=== PATIENT | female | born 1955 | race Caucasian/White ===

== ENCOUNTER 2019-01-05 08:30 | Emergency (ER) | payer MEDICARE ==
[~2019-01-05] VITALS: Ht 167.6 cm; Wt 65.8 kg
== END 2019-01-05 09:16 | disposition home or self-care (01) ==
LOC: ED 08:30
DX: S81.801A Unspecified open wound, right lower leg, initial encounter (principal); Z88.2 Allergy status to sulfonamides; Z79.899 Other long term (current) drug therapy; W22.8XXA Striking against or struck by other objects, initial encounter; Y93.89 Activity, other specified; Y92.89 Other specified places as the place of occurrence of the external cause; Y99.8 Other external cause status

== ENCOUNTER → 2019-01-05 | Outpatient (CLI) | payer MEDICARE ==
[~2019-01-05] MED LIST: JANUMET 500 MG-1 TA1 PO; NORCO 325 MG-101 TAB PO; ZOFRAN ODT4 MG SL
== END | disposition home or self-care (01) ==
LOC: WOUNDCARE 09:00
DX: E11.622 Type 2 diabetes mellitus with other skin ulcer (principal); L97.812 Non-pressure chronic ulcer of other part of right lower leg with fat layer exposed; I10 Essential (primary) hypertension

== ENCOUNTER → 2019-01-11 | Outpatient (CLI) | payer MEDICARE | END | disposition home or self-care (01) | LOC: WOUNDCARE 08:33 | DX: E11.622 Type 2 diabetes mellitus with other skin ulcer (principal); L97.812 Non-pressure chronic ulcer of other part of right lower leg with fat layer exposed; I10 Essential (primary) hypertension ==

== ENCOUNTER → 2019-01-18 | Outpatient (CLI) | payer MEDICARE | END | disposition home or self-care (01) | LOC: WOUNDCARE 01:15 | DX: E11.622 Type 2 diabetes mellitus with other skin ulcer (principal); L97.812 Non-pressure chronic ulcer of other part of right lower leg with fat layer exposed; L03.115 Cellulitis of right lower limb; I10 Essential (primary) hypertension ==

== ENCOUNTER → 2019-02-01 | Outpatient (CLI) | payer MEDICARE | END | disposition home or self-care (01) | LOC: WOUNDCARE 02:57 | DX: E11.622 Type 2 diabetes mellitus with other skin ulcer (principal); L97.812 Non-pressure chronic ulcer of other part of right lower leg with fat layer exposed; I10 Essential (primary) hypertension ==

== ENCOUNTER → 2019-02-14 | Outpatient (CLI) | payer MEDICARE | END | disposition home or self-care (01) | LOC: WOUNDCARE 08:30 | DX: E11.622 Type 2 diabetes mellitus with other skin ulcer (principal); L97.812 Non-pressure chronic ulcer of other part of right lower leg with fat layer exposed; I10 Essential (primary) hypertension ==

== ENCOUNTER → 2019-03-16 | Outpatient (CLI) | payer MEDICARE | END | disposition home or self-care (01) | LOC: WOUNDCARE 14:20 | DX: E11.622 Type 2 diabetes mellitus with other skin ulcer (principal); L97.811 Non-pressure chronic ulcer of other part of right lower leg limited to breakdown of skin; I87.311 Chronic venous hypertension (idiopathic) with ulcer of right lower extremity; I87.302 Chronic venous hypertension (idiopathic) without complications of left lower extremity ==

== ENCOUNTER → 2019-04-06 | Outpatient (CLI) | payer MEDICARE | END | disposition home or self-care (01) | LOC: WOUNDCARE 02:12 | DX: E11.622 Type 2 diabetes mellitus with other skin ulcer (principal); L97.811 Non-pressure chronic ulcer of other part of right lower leg limited to breakdown of skin; I87.311 Chronic venous hypertension (idiopathic) with ulcer of right lower extremity ==

== ENCOUNTER → 2019-04-20 | Outpatient (CLI) | payer MEDICARE | END | disposition home or self-care (01) | LOC: WOUNDCARE 01:11 | DX: E11.622 Type 2 diabetes mellitus with other skin ulcer (principal); L97.811 Non-pressure chronic ulcer of other part of right lower leg limited to breakdown of skin; I87.311 Chronic venous hypertension (idiopathic) with ulcer of right lower extremity; L92.9 Granulomatous disorder of the skin and subcutaneous tissue, unspecified ==

== ENCOUNTER → 2019-04-27 | Outpatient (CLI) | payer MEDICARE | END | disposition home or self-care (01) | LOC: WOUNDCARE 00:43 | DX: E11.622 Type 2 diabetes mellitus with other skin ulcer (principal); L97.811 Non-pressure chronic ulcer of other part of right lower leg limited to breakdown of skin; I87.311 Chronic venous hypertension (idiopathic) with ulcer of right lower extremity; L92.9 Granulomatous disorder of the skin and subcutaneous tissue, unspecified ==

== ENCOUNTER → 2019-05-04 | Outpatient (CLI) | payer MEDICARE | END | disposition home or self-care (01) | LOC: WOUNDCARE 01:03 | DX: E11.622 Type 2 diabetes mellitus with other skin ulcer (principal); L97.811 Non-pressure chronic ulcer of other part of right lower leg limited to breakdown of skin; I87.311 Chronic venous hypertension (idiopathic) with ulcer of right lower extremity; L92.9 Granulomatous disorder of the skin and subcutaneous tissue, unspecified; I87.302 Chronic venous hypertension (idiopathic) without complications of left lower extremity ==

== ENCOUNTER → 2019-05-11 | Outpatient (CLI) | payer MEDICARE | END | disposition home or self-care (01) | LOC: WOUNDCARE 00:45 | DX: E11.622 Type 2 diabetes mellitus with other skin ulcer (principal); L97.811 Non-pressure chronic ulcer of other part of right lower leg limited to breakdown of skin; I87.311 Chronic venous hypertension (idiopathic) with ulcer of right lower extremity; L92.9 Granulomatous disorder of the skin and subcutaneous tissue, unspecified ==

== ENCOUNTER → 2019-05-18 | Outpatient (CLI) | payer MEDICARE | END | disposition home or self-care (01) | LOC: WOUNDCARE 01:26 | DX: E11.622 Type 2 diabetes mellitus with other skin ulcer (principal); L97.811 Non-pressure chronic ulcer of other part of right lower leg limited to breakdown of skin; I87.311 Chronic venous hypertension (idiopathic) with ulcer of right lower extremity; L92.9 Granulomatous disorder of the skin and subcutaneous tissue, unspecified ==

== ENCOUNTER 2019-09-14 12:03 | Inpatient (IN) | payer MEDICARE ==
[~2019-09-14] VITALS: Ht 167.6 cm; Wt 68.7 kg
--- NOTE | ~2019-09-14 | PR ---
[place], [place] PROGRESS NOTE [facility]: [id number] UNIT #: [id number] ROOM: 520 DOCTOR: ISAI SANCHES,FEBRUARY BIRTHDATE: [birth year] DOS: 09/16/2019 SUBJECTIVE: The patient is a pleasant 64-year-old female who is being followed for bacteremia. Her blood cultures have come back with a fairly sensitive E. coli. She does admit to some mild dysuria. Her admitting UA had bilirubin and only 2-4 wbc's, negative for nitrites. Her antibiotics have been appropriately narrowed to Levaquin, which is currently IV. She states she only has nausea when she attempts to eat the hospital food. No diarrhea. Admits to some chronic pain. She still has lower extremity edema. No rash or itch. She has been afebrile for the last 24 hours. LABORATORY DATA: WBC 6.8, platelets 57. BUN 17, creatinine 0.88. CURRENT MEDICATIONS: Include Levaquin, folic acid, vitamin D, Lovenox, Restoril, Zofran. Reviewing an old CT of the abdomen and pelvis from 2013, she had changes of the liver that were consistent with cirrhosis. PHYSICAL EXAMINATION: VITAL SIGNS: Temperature 97.8, pulse 82, respirations 18, BP 138/57. GENERAL: A 64-year-old female, in no acute distress. HEAD, EYES, EARS, NOSE AND THROAT: Normocephalic, no thrush. LUNGS: Clear to auscultation bilaterally. Respirations even and unlabored. HEART: Regular rhythm. No murmur appreciated. ABDOMEN: Nontender, some distention as well as flank edema. EXTREMITIES: +4 edema bilateral lower extremities. Right leg is wrapped. No erythema above or below the dressing. SKIN: Warm, pale, dry, free of rashes. ASSESSMENT AND PLAN: Right leg cellulitis, Escherichia coli bacteremia. I doubt the Escherichia coli bacteremia is due to her leg. I would strongly suspect that it would be more involved from either her gastrointestinal tract given the old CAT scan, her thrombocytopenia, her low albumin and edema. She appears to have cirrhosis. She may have had a spontaneous bacterial peritonitis or may also have had a urinary tract infection. I do not think further workup of her heart valves is indicated. At this point, we will continue the Levaquin. It can be changed over to p.o. in preparation for discharge. I had a long discussion with her regarding need for high protein diet as well as a very low sodium intake to help with her edema. Any further workup or addressing of her cirrhosis as per her attending. FEBRUARY MYRON ALEX [place], [place] PROGRESS NOTE NAME: ANKUSH LEES UNIT #: [id number] ROOM: 520 DOCTOR: ISAI SANCHES,FEBRUARY BIRTHDATE: [birth year] Kristy Hurst MD CM:PNTRANS [id number] FEBRUARY ISAI SANCHES 09/16/19 1731 interface
--- NOTE | ~2019-09-14 | PR ---
[place], [place] PROGRESS NOTE NAME: ANKUSH LEES UNIT #: [id number] ROOM: 520 DOCTOR: VISHNU MARIE,KRISTY BIRTHDATE: [birth year] DOS: 09/17/2019 ADDENDUM This is an addendum to the progress note from 09/17/2019. I agree with the assessment and plan, reviewed the labs and imaging, made the necessary changes in the note. Kristy Mares MD CM:PNTRANS 1621 KRISTY MARES MD 09/21/19 0422 interface
--- NOTE | ~2019-09-14 | EKG ---
[place], [place] ELECTROCARDIOGRAM REPORT NAME: ANKUSH LEES UNIT #: [id number] ROOM: DOCTOR: AMY DRAFT REPORT BIRTHDATE: [birth year] [facility] Test Date: 2019-09-14 Test Time: 13:51:42 Pat Name: ANKUSH LEES Department: Room: Gender: F Field Laborer: : 1955 Requested By: LALITHA LEONARD DNP Order Number: [id number] Reading MD: Measurements Intervals [place] Rate: 113 P: 0 AL: QRS: 0 QRSD: 88 T: QT: 281 QTc: 386 Interpretive Statements No further analysis attempted - not enough leads could be measured Missing lead(s): II,III,aVR,aVL,aVF,V1,V2,V3,V4,V5,V6 No previous ECG available for comparison CM:EKGRPT:ELECTROCARDIOGRAM REPORT [id number] 1100 LALITHA REYES DRAFT REPORT LALITHA LEONARD DNP
--- NOTE | ~2019-09-14 | EKG ---
[place], [place] ELECTROCARDIOGRAM REPORT NAME: ANKUSH LEES UNIT #: [id number] ROOM: 520 DOCTOR: AMY DRAFT REPORT BIRTHDATE: [birth year] [facility] Test Date: 2019-09-14 Test Time: 14:59:56 Pat Name: ANKUSH LEES Department: Room: 520 Gender: F Keypunch Operator: Maria Eugenia Mckeon : 1955 Requested By: LALITHA LEONARD DNP Order Number: [id number] Reading MD: Alissa Carson Measurements Intervals [place] Rate: 109 P: 41 WV: 161 QRS: -4 QRSD: 86 T: 141 QT: 314 QTc: 423 Interpretive Statements Sinus tachycardia Consider anterior infarct Repol abnrm suggests ischemia, anterolateral Baseline wander in lead(s) V5 No previous ECG available for comparison Electronically Signed On 09-15-2019 7:55:27 PDT by Alissa Carson CM:EKGRPT:ELECTROCARDIOGRAM REPORT [id number] LALITHA LEONARD DNP EPIPHANY DRAFT REPORT
--- NOTE | ~2019-09-14 | PR ---
[place], [place] PROGRESS NOTE NAME: ANKUSH LEES UNIT #: [id number] ROOM: 520 DOCTOR: VISHNU MARIE,KRISTY BIRTHDATE: [birth year] DOS: 09/16/2019 I agree that the E. coli bacteremia is not from the right leg cellulitis, rule out UTI. I agree with the assessment and plan, made the necessary changes in the note, reviewed the labs and imaging. Kristy Mares MD CM:PNTRANS 1620 KRISTY MARES MD 09/21/19 0421 interface
--- NOTE | ~2019-09-14 | CON ---
[place], [place] REPORT OF CONSULTATION NAME: ANKUSH LEES [facility] #: [id number] UNIT #: [id number] ROOM: 520 DOCTOR: HALI GANDHI MD BIRTHDATE: [birth year] DOS: 09/21/2019 PULMONARY CONSULTATION, EVALUATION AND MANAGEMENT CONSULTATION REQUESTED BY: Hospitalist service. REASON FOR CONSULTATION: For assessment of pleural effusions. HISTORY OF PRESENT ILLNESS: A 64-year-old white female who has been admitted to the hospital for the medical management of the wound noted on the right lower extremity, which has been reported intermittently by the patient. She has been treated in the hospital for that. She was planned for discharge yesterday and was noted with symptoms of shortness of breath. She has been noted with significant shortness of breath and hypoxia with exertion. She has a chest x-ray done initially, later on CT scan of the chest obtained for further assessment. CT scan of the chest was noted with moderate to large bilateral pleural effusions. The patient stating she does not have any symptoms of shortness of breath at rest. She had not been ambulating significantly except in her room. Denies symptoms of chest pain. The patient denies symptoms of coughing, wheezing or any hemoptysis. REVIEW OF SYSTEMS: CONSTITUTIONAL: Fatigue and tiredness noted without any symptoms of fever or chills. EYES: Denies any burning, redness, or tenderness. EARS, NOSE, THROAT SYMPTOMS: No sore throat, hoarseness, otalgia, postnasal drainage or epistaxis. CARDIOVASCULAR: Edema of the lower extremity with cellulitis. Denies symptoms of anginal pain or palpitations. GASTROINTESTINAL SYMPTOMS: Denies dysphagia, nausea, vomiting, diarrhea, abdominal pain, hematemesis, melena, or hematochezia. GENITOURINARY SYMPTOMS: No dysuria, suprapubic pain, or hematuria. MUSCULOSKELETAL: No acute joint pain, redness, or tenderness. SKIN: Wound infection, which is noted in the right lower extremity. CENTRAL NERVOUS SYSTEM: No dizziness, headache, diplopia, or syncopal episodes. Remaining systems were reviewed, they were noted all negative. PAST MEDICAL HISTORY: Noted as: 1. Hypertension. 2. Type 2 diabetes mellitus. 3. Wound infection of the right lower extremity and cellulitis. SOCIAL HISTORY: The patient stated she is single. Lives at home, does not have any children. No history of alcohol use or any illicit drug use. She was noted nonsmoker. PAST SURGICAL HISTORY: No major surgery reported. FAMILY HISTORY: The patient's father at the age of 80 with complication of [place], [place] REPORT OF CONSULTATION NAME: ANKUSH LEES UNIT #: [id number] ROOM: [facility] DOCTOR: HALI GANDHI MD BIRTHDATE: [birth year] coronary artery disease. Mother at 59 years with complication of coronary artery disease. HOME MEDICATIONS: Listed as Zofran as well as the Janumet. CURRENT MEDICATIONS: Current medications, which were administered actively on this hospitalization were noted as lisinopril, folic acid, Lovenox for DVT prophylaxis, Levaquin, doxycycline and some other meds. The patient was given 40 mg of Lasix yesterday as well and 40 mg daily was ordered for today as well. DRUG ALLERGIES: Noted as: 1. SULFA DRUG. 2. AUGMENTIN. PHYSICAL EXAMINATION: GENERAL: A 64-year-old female patient who has been currently noted sitting on the side of bed without any distress, appeared to be very scared and nervous. Height was noted 5 feet 6 inches, weight 151 pounds, BMI 24. VITAL SIGNS: Vital signs, which were recorded shows normal temperature 99.7 degree Fahrenheit noted in the last 24 hours, respiratory rate 18-16, heart rate 72-103, blood pressure 140/58-152/81. Pulse ox saturation at rest on room air 95% saturation. HEENT: Head was atraumatic. Eyes nonicterus. NECK: Supple. CARDIOVASCULAR: S1, S2 audible. LUNGS: Noted with decreased breath sounds in lower portion of the lung. There were no wheeze or crackles. ABDOMEN: Soft, nontender. EXTREMITIES: Currently, right lower extremity is wrapped. MUSCULOSKELETAL: Without any deformity. SKIN: Limited skin examination noted without any lesions or rashes. CENTRAL NERVOUS SYSTEM: Noted intact. LABORATORY DATA: Assessed. CBC that was done on 09/18/2019 WBC count 4.7, hemoglobin 10.7, platelet count was 65,000. CMP that was done on 09/18/2019, normal BUN and creatinine, glucose 175. Sodium 146. Albumin 2.1. Urine culture on 09/15/2019, noted moderate growth of yeast. CBC from 09/14/2019, WBC count was normal, hemoglobin 11.5, platelet count was still noted low at 69,000. The admission platelet count noted 65,000. Blood culture from 09/14/2019 noted with E. coli bacteremia and culture from 09/15/2019 does not show any abnormal bacteria isolation. IMAGING STUDIES: Chest x-ray that was done on 09/14/2019 noted with pleural effusion, area of compression atelectasis in lower lungs, greater on the left than the right side. Another chest x-ray that was done, 2 views, which was reviewed on 09/20/2019, increased pleural fluid noted on the left side with a small right pleural fluid was also noted. Lateral view shows actually large pleural effusions bilaterally. CT scan of the chest that was completed yesterday without contrast was personally reviewed from the PACS images shows moderate to large bilateral pleural fluid noted with compression atelectasis. [place], [place] REPORT OF CONSULTATION NAME: ANKUSH LEES UNIT #: [id number] ROOM: [facility] DOCTOR: YECENIA POST MD,[facility] BIRTHDATE: [birth year] There were no discrete lung masses or other abnormalities seen. Ultrasound of the left upper extremity was also done, which was noted as negative for any deep venous thrombosis. IMPRESSION: 1. The patient will be currently admitted to the hospital noted with bilateral pleural fluid related to most likely congestive heart failure, whether systolic or diastolic dysfunction was unknown. 2. Cellulitis of right lower extremity, which has been managed under the care of the Infectious Disease Service as well with antibiotics to be continued for 3 weeks of doxycycline. There was no past history of tobacco use reported by the patient. 3. History of type 2 diabetes mellitus as well. 4. Bacteremia with Escherichia coli, noted pansensitive organism from admission, source unknown. GI or genitourinary tract would be considered, but so far the investigation performed were noted nonrevealing. PLAN OF MANAGEMENT: The patient has been recommended about thoracentesis bilaterally stating she is extremely frightened about any procedures. She has been explained to the best possible about the thoracentesis that will be beneficial for further diagnostic workup and management of current problem. She already has been ordered for echocardiogram. Probably she will require Cardiology consultation as well for assessment of current bilateral pleural fluid as the congestive heart failure is most likely reason for bilateral pleural fluid or other atypical etiology such as infection, malignant process and other remains in consideration, but considered lower in the list. In the meantime, other therapy, plan of management, care to be continued as in progress. Usual care, other supportive plan of management, care plan for treatment and other therapies. Supportive care, other usual medical management, plan of care. HALI KEENE MD CM:CONSTR:REPORT OF CONSULTATION 1312 09/22/19 0213 interface
--- NOTE | ~2019-09-14 | PR ---
[place], [place] [facility]GR[id number] #: [id number] ROOM: 520 DOCTOR: YECENIA POST MD,HALI BIRTHDATE: [birth year] DOS: 09/22/2019 PULMONARY PROGRESS NOTE SUBJECTIVE: She remains the same yesterday. Denies symptoms of coughing, chest pain, sputum expectoration, fever or chills. OBJECTIVE: VITAL SIGNS: Normal temperature, respiratory rate 16, heart rate 78, blood pressure 150/67. Pulse ox saturation recorded at rest on room air is 94% saturation. HEENT: Examination shows head was atraumatic. Eyes nonicterus. NECK: Supple. CARDIOVASCULAR SYSTEM: S1, S2 audible. LUNGS: Noted without any wheezing or crackles. Decreased breath sounds in the right lower lung as previously noted unchanged. ABDOMEN: Soft, nontender. Bowel sounds present. EXTREMITIES: No new changes. IMPRESSION: Bilateral moderate to large pleural fluid, refused to do thoracentesis. Possible consideration of congestive heart failure, workup is in progress. PLAN OF TREATMENT: Continue conservative management based on the patient's refusal of further assessment and intervention of the pleural fluid with conservative therapy. Usual care. If the patient does change her mind, she will be reassessed for thoracentesis as necessary. HALI KEENE MD CM:PNTRANS [id number] HALI POST MD 09/23/19 0056 interface
--- NOTE | ~2019-09-14 | PR ---
[place], [place] PROGRESS NOTE NAME: ANKUSH LEES UNIT #: [id number] ROOM: [facility] DOCTOR: ISAI SANCHES,FEBRUARY BIRTHDATE: [birth year] DOS: 09/17/2019 SUBJECTIVE: The patient is being followed for right leg cellulitis and E. coli bacteremia. She is currently on Levaquin IV. She is tolerating the antibiotics. Denies nausea, vomiting or diarrhea. No shortness of breath. Has a little dysuria. She had one low-grade temperature overnight of 100.0. LABORATORY DATA: No new labs today other than urine culture coming back with 50,000 colonies of yeast. Repeat blood cultures from the 25th remained sterile. Her 09/14/2019 blood culture grew Escherichia coli. CURRENT MEDICATIONS: Levaquin, folic acid, vitamin D, Lovenox, Restoril, Zofran, milk of mag, Dulcolax p.r.n. PHYSICAL EXAMINATION: VITAL SIGNS: Temperature 98.8, pulse 82, respirations 16, BP 162/64. GENERAL: A 64-year-old female, in no acute distress. HEAD, EYES, EARS, NOSE AND THROAT: Normocephalic, no thrush. LUNGS: Clear to auscultation bilaterally. Respirations even and unlabored. HEART: Regular rhythm. No murmur appreciated. ABDOMEN: Soft, some distention, nontender. Positive bowel sounds. EXTREMITIES: +3 edema bilateral lower extremities, right lower extremity with multiple small open wounds anterior tibial area. Large amount of serous drainage on the dressing. Wounds with surrounding erythema, no odor, no pus. SKIN: Otherwise, warm, dry, free of rashes. She also has some right upper extremity edema where an IV infiltrated. ASSESSMENT: Escherichia coli bacteremia, questionable etiology. Her cellulitis versus urinary tract infection. No wound cultures were obtained, but the cellulitis is a less likely etiology for that as well as a possible GI source. Repeat blood cultures remained sterile. PLAN: Continue Levaquin. FEBRUARY MYRON ALEX [place], [place] PROGRESS NOTE NAME: ANKUSH LEES UNIT #: [id number] ROOM: 520 DOCTOR: ISAI SANCHES,FEBRUARY BIRTHDATE: [birth year] Kristy Hurst MD CM:PNTRANS 1550 17 ISAI SANCHES 09/17/19 161 interface
[2019-09-14 12:03] VITALS: BP 168/64
--- NOTE | 2019-09-14 13:01 | NUR ---
PATIENT REFUSING IV ACCESS, BLOODWORK, CARDIAC MONITORING STICKERS TO BE PLACED ONTO HER, AND TO TAKE OFF HER BODY SUIT. STATES "CANT YOU PUT THE STICKERS ON MY BACK IM NOT TAKING MY SUIT OFF". PATIENT DID REMOVED SHIRT AND JACKET. PATIENT REFUSED TO DO ANYTHING UNTIL HER AUNT WAS IN THE ROOM WITH HER. IN AN ATTEMPT TO START TO PLACE STICKERS AROUND HER BODY SUIT SHE WOULD NOT PUT HER CELL PHONE DOWN UNTIL SHE COULD GET AHOLD OF HER AUNT.
--- NOTE | 2019-09-14 13:30 | NUR ---
LALITHA CHIEF ARSON DIVISION NOTIFIED OF PATIENT NOT WANTING TO COOPERATE STILL. STATES SHE WILL CONTACT MARYLU THAKKAR OF ER TO SPEAK WITH HER.
--- NOTE | 2019-09-14 13:50 | NUR ---
MARYLU ER DIRECTOR IN ROOM WITH PATIENT STATES PATIENT IS OK WITH BLOODWORK AND IV ACCES TO BE OBTAINED. STATES ALSO FOR DEVELOPMENT SYSTEM EFFICIENCY MANAGER STICKERS TO BE APPLIED.
[2019-09-14 14:14] LABS: BASO % 0.2 % (0.0-1.0); EOS % 0.4 % (1.0-4.0); HEMATOCRIT 35.5 % (37.0-47.0); LYMPH # 0.8 10*3/uL (1.3-4.4); LYMPH % 7.8 % (27.0-41.0); MEAN CELL VOLUME 89.9 fl (81.0-99.0); MEAN CORPUSCULAR HGB 30.4 pg (27.0-31.0); MEAN CORPUSCULAR HGB CONC 33.8 g/dl (33.0-37.0); MONO # 0.4 10*3/uL (0.1-1.0); MONO % 4.3 % (3.0-9.0); NEUT # 8.5 10*3/uL (2.3-7.9); NEUT % 86.8 % (47.0-73.0); PLATELET COUNT AUTOMATED 65 10*3/uL (130-400); RED BLOOD COUNT 3.95 10*6/uL (4.10-5.10); RED CELL DISTRI WIDTH 16.7 % (0-14.5); WHITE BLOOD COUNT 9.8 10*3/uL (4.8-10.8)
[2019-09-14 14:22] LABS: ACT PARTIAL THROMBO TIME 26.1 SECONDS (20.0-32.1); INTERNATIONAL NORM RATIO 1.2 (2.0-3.5)
[2019-09-14 14:27] LABS: ALBUMIN 2.6 gm/dl (3.1-4.5); ALKALINE PHOSPHATASE 117 U/L (45-117); BUN 15 mg/dl (7-24); CHLORIDE 111 mmol/L (98-107); CREATININE 0.83 mg/dL (0.55-1.02); LIPASE 145 U/L (73-393); SGOT/AST 18 IU/L (3-35); SGPT/ALT 21 U/L (12-78); SODIUM 142 mmol/L (136-145); TOTAL PROTEIN 5.9 gm/dL (6.4-8.2); TROPONIN I 0.027 ng/ml (<0.045)
[2019-09-14 14:49] VITALS: BP 143/59
[2019-09-14 15:34] VITALS: BP 137/68
--- NOTE | 2019-09-14 15:56 | NUR ---
REPORT CALLED TO IRENE RONDON. HOLLY RONDON TAKING PATIENT UP TO 520.
[2019-09-14 16:30] VITALS: BP 174/66
--- NOTE | 2019-09-14 16:30 | NUR ---
A 64, admitted to 5E, under the services of TANA Lincoln DO with a diagnosis of CELULITIS RLE, SEPSIS. Chief complaint is INFECTION. Patient arrived via stretcher from ER. Monitor applied. Initial assessment completed. Vital signs taken and recorded. TANA LINCOLN DO notified of admission to the unit. Orders received. See assessment for past medical history, medications and allergies. Patient and/or family oriented to unit. [facility] visitation policy reviewed. Clothing/patient valuable form completed. IRENE NEWELL
[2019-09-14 17:00] VITALS: BP 174/66
--- NOTE | 2019-09-14 19:53 | NUR ---
PATIENT STATES SHE HAS HAD A HEADACHE ALL DAY AND THAT SHE WAS FEELING NAUSEATED. TYLENOL AND ZOFRAN GIVEN. WILL MONITOR AND REASSESS.
[2019-09-14 20:00] VITALS: BP 138/55
--- NOTE | 2019-09-14 21:17 | NUR ---
PATIENT REFUSED INSULIN COVERAGE, STATED "CAN WE DO IT IN THE MORNING".
[2019-09-15] VITALS: BP 134/52
--- NOTE | 2019-09-15 02:23 | NUR ---
CALLED AND NOTIFIED DR. TURNER OF POSITIVE BLOOD CULTURE IN ANEROBIC BOTTLE IS GNB. HE IS LOOKING AT PATIENT CHART FOR FURTHER ORDERS.
[2019-09-15 03:10] LABS: BASO % 0.1 % (0.0-1.0); EOS # 0.1 10*3/uL (0.0-0.4); EOS % 1.6 % (1.0-4.0); HEMATOCRIT 29.8 % (37.0-47.0); HEMOGLOBIN 10.3 g/dl (12.0-16.0); LYMPH # 1.2 10*3/uL (1.3-4.4); LYMPH % 14.9 % (27.0-41.0); MEAN CELL VOLUME 91.7 fl (81.0-99.0); MEAN CORPUSCULAR HGB 31.7 pg (27.0-31.0); MEAN CORPUSCULAR HGB CONC 34.6 g/dl (33.0-37.0); MEAN PLATELET VOLUME 10.4 fl (9.6-12.3); MONO # 0.5 10*3/uL (0.1-1.0); MONO % 6.5 % (3.0-9.0); NEUT # 6.2 10*3/uL (2.3-7.9); NEUT % 76.5 % (47.0-73.0); PLATELET COUNT AUTOMATED 61 10*3/uL (130-400); RED BLOOD COUNT 3.25 10*6/uL (4.10-5.10); RED CELL DISTRI WIDTH 16.8 % (0-14.5); WHITE BLOOD COUNT 8.1 10*3/uL (4.8-10.8)
[2019-09-15 03:21] LABS: ACT PARTIAL THROMBO TIME 31.3 SECONDS (20.0-32.1); INTERNATIONAL NORM RATIO 1.4 (2.0-3.5)
[2019-09-15 03:26] LABS: ALBUMIN 2.1 gm/dl (3.1-4.5); ALKALINE PHOSPHATASE 91 U/L (45-117); BUN 17 mg/dl (7-24); CHLORIDE 116 mmol/L (98-107); CHOLESTEROL 84 mg/dL (<200); HDL CHOLESTEROL 49 mg/dl (40-60); LDL CHOLESTEROL 26 mg/dL (9-159); PHOSPHOROUS 2.2 mg/dL (2.5-4.9); POTASSIUM 3.7 mmol/L (3.5-5.1); SGOT/AST 15 IU/L (3-35); SGPT/ALT 16 U/L (12-78); SODIUM 145 mmol/L (136-145); TRIGLYCERIDES 47 mg/dl (<150); VLDL CHOLESTEROL 9 mg/dL (6-40)
[2019-09-15 03:27] LABS: FREE T4 1.28 ng/dl (0.76-1.46)
--- NOTE | 2019-09-15 06:54 | NUR ---
ANKUSH LEES [id number] Please refer to the physician's history and physical for past medical history, comorbid conditions, and allergies. Diagnosis: CELLULITIS OF LOWER EXTREMITY Carlito Score: 19,LOW OR NO RISK WOUND DESCRIPTIONS: Wound Number: 1 Location of the wound: right lower leg proximal Thickness: Full Size: 0.8cm x 0.6cm x <0.1cm Tunneling: none Undermining: none Sinus Tract: none Presence of Exudate: Serous Amount: Heavy Color: Yellow, red Odor: None Periwound Skin Appearance: Erythema 19cm x 35cm, pitting edema noted Wound edges: approximated Pain (associated with wound): none at time of assessment How does patient state this happened? pt stated this all happened from waste management back in December from a trash can hit her leg Wound Number: 2 Location of the wound: right lower lateral leg Thickness: Full Size: 1.3cm x 2.0cm x 0.1cm Tunneling: none Undermining: none Sinus Tract: none Presence of Exudate: Serous Amount: Heavy Color: Yellow, red Odor: None Periwound Skin Appearance: Erythema 19cm x 35cm, pitting edema noted Wound edges: approximated Pain (associated with wound): none at time of assessment How does patient state this happened? pt stated this all happened from waste management back in December from a trash can hit her leg Wound Number: 3 Location of the wound: right lower leg medial Thickness: Full Size: 0.9cm x 0.6cm x 0.1cm Tunneling: none Undermining: none Sinus Tract: none Presence of Exudate: Serous Amount: Heavy Color: Red, yellow Odor: None Periwound Skin Appearance: Erythema 19cm x 35cm, pitting edema noted Wound edges: approximated Pain (associated with wound): none at time of asesssment How does patient state this happened? pt stated this all happened from waste management back in December from a trash can hit her leg Wound Number: 4 Location of the wound: right lower leg distal Type of wound: Thickness: Full Size: 0.6cm x 2.3cm x 0.1cm Tunneling: none Undermining: none Sinus Tract: none Presence of Exudate: Serous Amount: Heavy Color: Red Odor: None Periwound Skin Appearance: Erythema 19cm x 35cm, pitting edema noted Wound edges: approximated Pain (associated with wound): none at time of assessment How does patient state this happened? pt stated this all happened from waste management back in December from a trash can hit her leg Wound Number: 5 Location of the wound: right posterior lower distal area Thickness: Full Size: 0.5cm x 0.5cm x 0.1cm Tunneling: none Undermining: none Sinus Tract: none Presence of Exudate: Serous Amount: Heavy Color: Red, yellow Odor: None Periwound Skin Appearance: Erythema 19cm x 35cm, pitting edema noted Wound edges: approximated Pain (associated with wound): none at time of assessment How does patient state this happened? pt stated this all happened from waste management back in December from a trash can hit her leg Wound Number: 6 Location of the wound: right posterior lower distal area Thickness: Full Size: 0.8cm x 1.1cm x 0.1cm Tunneling: none Undermining: none Sinus Tract: none Presence of Exudate: Serous Amount: Heavy Color: Red, yellow Odor: None Periwound Skin Appearance: Erythema 19cm x 35cm, pitting edema noted Wound edges: approximated Pain (associated with wound): none at time of assessment How does patient state this happened? pt stated this all happened from waste management back in December from a trash can hit her leg Patient left leg have several intact blisters noted. Red and blanchable at time of assessment areas is measuring 11cm x 38cm x <0.1cm. Surface the patient is resting on: Isoflex SKIN PREVENTION RECOMMENDATION: 1. Pressure redistribution support surface as appropriate 2. Elevate heels 3. Remove boots/TEDS every shift and reapply 4. Head of bed 30 degrees as tolerated 5. Assess nutrition and hydration 6. Manage moisture 7. Avoid the use of containment devices while in bed 8. Use absorptive products on surfaces limit layers of linens on bed 9. Turn and reposition every 1-2 hours in bed and every 1 hour in chair as tolerated 10. Weight shifts every 15 minutes while up in chair 11. Offloading with pillows or device to keep heels elevated off bed 12. Monitor skin at least every shift 13. Inspect under medical devices twice a day WOUND TREATMENT RECOMMENDATIONS: Artieral studies are pending at time of assessment. Dr. Monroy is already on consult and she states she will continue to follow up with Dr. Monroy upon discharge may need possible debridement if studies allow and patient tolerates procedure. Heel raiser pro boots while in bed. Full thickness guidelines: Cleanse all areas to right lower extremity with nss and apply sureprep around the wound therahoney sheet to wound bed and cover with maxorb and apply abd pad and lightly wrap with kerlix daily and prn for soiling.
--- NOTE | 2019-09-15 07:10 | NUR ---
ARRIVED ON SHIFT, PATIENT DID NOT AWAKEN FOR BEDSIDE REPORT, WHITE BOARD UPDATED NO NEEDS VOICED AT THIS TIME.
[2019-09-15 07:43] LABS: VITAMIN D, 25-HYDROXY 11.8 ng/mL (30-100)
--- NOTE | 2019-09-15 08:02 | NUR ---
Shift chart check completed.
--- NOTE | 2019-09-15 09:00 | NUR ---
[employer] in to talk to patient. Patient states lives at home with alone. There are few steps in the home. Physician: Pharmacy: [facility] [place] [facility]: none Patient's level of ADLs: INDEPENDENT Patient has working utilities: all working DME: none Follow-up physician's appointment after d/c: will be made by hospitalist nurse director upon discharge Does patient want to access PORTAL?: no Discharge plan discussed with patient she states she lives at home alone, is independent in adls and ambulation, drives, she states she is a regular patient at the wound clinic, she states she will return home when medically stable and denies any home needs. NAKUL BARRAZA
--- NOTE | 2019-09-15 09:44 | NUR ---
Dr. Morales notified of wound care recommendations.
--- NOTE | 2019-09-15 11:07 | NUR ---
CALL PLACED TO DR. REMY'S OFFICE, SPOKE TO VICTOR MANUEL, ADVISED OF CONSULT, SHE VERSED SHE WILL PAGE PHYSICIAN.
[2019-09-15 11:24] LABS: BILIRUBIN 1+ (NEGATIVE); BLOOD 3+ (NEGATIVE); CLARITY SL CLOUDY (CLEAR); COLOR YELLOW (YELLOW); GLUCOSE TRACE (NEGATIVE); KETONE NEGATIVE (NEGATIVE); LEUKO ESTERASE NEGATIVE (NEGATIVE); NITRITE NEGATIVE (NEGATIVE); PH 5.5 (5.0-9.0); SPECIFIC GRAVITY >= 1.030 (1.005-1.030)
[2019-09-15 11:37] LABS: RBC TNTC rbc/hpf (0-2)
[2019-09-15 12:00] VITALS: BP 149/50
[2019-09-15 16:00] VITALS: BP 159/60
[2019-09-15 20:00] VITALS: BP 140/57
--- NOTE | 2019-09-15 20:20 | NUR ---
PATIENT MEDICATED WITH PRN ZOFRAN FOR C/O NAUSEA AFTER EATING DINNER. IV FLUIDS INFUSING ORDERED. PATIENT ASSITED WITH REPOSITIONING IN BED. CALL LIGHT WITHIN REACH. WILL MONITOR FOR EFFECTIVENESS.
--- NOTE | 2019-09-15 21:00 | NUR ---
PER PATIENT PRN ZOFRAN EFFECTIVE.
--- NOTE | 2019-09-15 23:21 | NUR ---
PRN RESTORIL GIVEN REQUESTED FOR SLEEP. WILL MONITOR FOR EFFECTIVENESS.
[2019-09-16] VITALS: BP 134/61
--- NOTE | 2019-09-16 00:06 | NUR ---
PATIENT REPOSITIONED IN BED BY STAFF. PATIENT REQUESTED TO BE PULLED UP AND A PILLOW PLACED UNDERNEATH HER. IV FLUIDS INFUSING ORDERED. CALL LIGHT WITHIN REACH. BED IN LOWEST POSITION.
--- NOTE | 2019-09-16 00:21 | NUR ---
PRN RESTORIL EFFECTIVE.
--- NOTE | 2019-09-16 04:30 | NUR ---
PATIENT ASLEEP IN BED. RESPIRATIONS EVEN AND UNLABORED. BED LOCKED IN LOWEST POSITION. CALL LIGHT WITHIN REACH.
[2019-09-16 06:59] LABS: BASO % 0.3 % (0.0-1.0); EOS # 0.2 10*3/uL (0.0-0.4); EOS % 2.9 % (1.0-4.0); HEMATOCRIT 32.3 % (37.0-47.0); HEMOGLOBIN 10.7 g/dl (12.0-16.0); LYMPH # 1.2 10*3/uL (1.3-4.4); LYMPH % 18.1 % (27.0-41.0); MEAN CELL VOLUME 92.8 fl (81.0-99.0); MEAN CORPUSCULAR HGB 30.7 pg (27.0-31.0); MEAN CORPUSCULAR HGB CONC 33.1 g/dl (33.0-37.0); MEAN PLATELET VOLUME 10.3 fl (9.6-12.3); MONO # 0.4 10*3/uL (0.1-1.0); NEUT # 4.9 10*3/uL (2.3-7.9); NEUT % 72.1 % (47.0-73.0); PLATELET COUNT AUTOMATED 57 10*3/uL (130-400); RED BLOOD COUNT 3.48 10*6/uL (4.10-5.10); RED CELL DISTRI WIDTH 17.4 % (0-14.5); WHITE BLOOD COUNT 6.8 10*3/uL (4.8-10.8)
[2019-09-16 07:13] LABS: BUN 17 mg/dl (7-24); CHLORIDE 119 mmol/L (98-107); CREATININE 0.88 mg/dL (0.55-1.02); POTASSIUM 3.8 mmol/L (3.5-5.1); SODIUM 148 mmol/L (136-145)
[2019-09-16 08:00] VITALS: BP 132/54
--- NOTE | 2019-09-16 08:01 | NUR ---
NOTIFED REGARDING POSITIVE BLOOD CULTURE FROM 09/14. THIS NURSE WILL CALL ID REGARDING RESULT.
--- NOTE | 2019-09-16 08:04 | NUR ---
ID'S ANSWERING SERVICE CALLED AT THIS TIME REGARDING CONSULT.
--- NOTE | 2019-09-16 08:20 | NUR ---
IN THIS AM AND CHANGED DRESSING PER ORDER TO RLE.
[2019-09-16 12:00] VITALS: BP 138/57
--- NOTE | 2019-09-16 14:03 | NUR ---
RETURNED CALL AND NOTIFIED REGARDING RESULTS OF BLOOD CULTURE.
--- NOTE | 2019-09-16 15:05 | NUR ---
DRESSING CHANGED TO RLE PER ORDER. RIGHT LOWER LEG SEEPING AT THIS TIME THROUGH THE DRESSING. PATIENT REPOSITIONED. PT TOLERATED WELL. WILL CONTINUE TO MONITOR. NO VOICED COMPLAINTS.
[2019-09-16 16:00] VITALS: BP 152/60
--- NOTE | 2019-09-16 17:53 | NUR ---
Patient resting quietly with no c/o discomfort. Respirations easy and regular. Vital signs stable. No overt distress. LORIE BALLARD
[2019-09-16 20:00] VITALS: BP 166/56
--- NOTE | 2019-09-16 21:24 | NUR ---
PATIENT MEDICATED WITH TYLENOL FOR TEMP OF 100.0. PATIENT CONCERNED ABOUT WHY SHE HAS A TEMP AND WHY ANTIBIOTICS WERE D/C'D. EXPLAINED TO PATIENT IT WAS A LOW GRADE TEMP AND THE DOCTOR ORDERS THE ANTIBIOTICS REQUIRED FOR THE INFECTION. DENIES COMPLAINTS OF PAIN OR DISCOMFORT AT THIS TIME. WILL CONTINUE TO MONITOR. CALL LIGHT IN REACH.
[2019-09-17] VITALS: BP 144/61
--- NOTE | 2019-09-17 00:11 | NUR ---
TYLENOL EFFECTIVE AT THIS TIME. TEMP DOWN TO 98.1. PATIENT MEDICATED WITH RESTORIL FOR COMPLAINTS OF INSOMNIA. PATIENT COMPLAINING OF BUTTOCKS HURTING FROM THE BED. ASSISTED PATIENT TO TURN AND POSITIONED A PILLOW UNDER HER. STATED SHE FELT BETTER. RESPIRATIONS REGULAR AND NON-LABORED. WILL CONTINUE TO MONITOR. CALL LIGHT IN REACH.
--- NOTE | 2019-09-17 02:22 | NUR ---
DRESSING SATURATED WITH DRAINAGE TO RIGHT LEG. DRESSING REMOVED. AREA CLEANED AND NEW DRESSING APPLIED WITH SERGIO GARCIA'William AND JUAN WRAP. PATIENT TOLERATED WELL. WILL CONTINUE TO MONITOR.
--- NOTE | 2019-09-17 07:03 | NUR ---
24 HR chart check completed.
[2019-09-17 08:00] VITALS: BP 156/72
[2019-09-17 12:00] VITALS: BP 162/64
--- NOTE | 2019-09-17 15:05 | NUR ---
WENT TO HANG PT'S IV [facility] AROUND 1030. PT'S IV WAS OUT OF ARM AND ARM WAS SWOLLEN, RED, AND HAD OPEN SKIN TEARS TO THE RAC. THERE WAS ALSO A BLISTER NOT OPEN. PICTURE WAS TAKEN ON WOUND CAMERA. CALLED AND NOTIFIED DR. BROWN OF [facility].
[2019-09-17 16:00] VITALS: BP 152/94
--- NOTE | 2019-09-17 18:38 | NUR ---
RLE DRESSING CHANGED AND OPTIFOAM PLACED ON RAC.
[2019-09-17 20:00] VITALS: BP 153/90
--- NOTE | 2019-09-17 22:23 | NUR ---
PATIENT MEDICATED WITH RESTORIL FOR COMPLAINTS OF INSOMNIA. DENIES COMPLAINTS OF PAIN OR DISCOMFORT AT THIS TIME. RESPIRATIONS REGULAR AND NON-LABORED. VITAL SIGNS STABLE. BED ALARM ON FOR PATIENT BEING UNSTEADY AND WEAK. LUNGS CLEAR ON ROOM AIR. WILL CONTINUE TO MONITOR. CALL LIGHT IN REACH.
--- NOTE | 2019-09-18 01:25 | NUR ---
DRESSING TO RIGHT LEG SATURATED AND BED WET FROM DRAINAGE. DRESSING REMOVED AND NEW ABD'S APPLIED WITH THERAHONEY AND KERLIX. PATIENT TOLERATED WELL. PATIENT ALSO ASSISTED TO BATHROOM. DENIES COMPLAINTS OF PAIN OR DISCOMFORT. BED ALARM ON AND FUNCTIONING. WILL CONTINUE TO MONITOR. CALL LIGHT IN REACH.
--- NOTE | 2019-09-18 03:45 | NUR ---
PATIENT MEDICATED WITH TYLENOL FOR COMPLAINTS OF A HEADACHE. WILL MONITOR FOR EFFECTIVENESS. CALL LIGHT IN REACH.
[2019-09-18 06:37] LABS: BASO % 0.4 % (0.0-1.0); EOS # 0.2 10*3/uL (0.0-0.4); EOS % 3.8 % (1.0-4.0); HEMATOCRIT 32.2 % (37.0-47.0); HEMOGLOBIN 10.7 g/dl (12.0-16.0); LYMPH % 21.7 % (27.0-41.0); MEAN CELL VOLUME 91.5 fl (81.0-99.0); MEAN CORPUSCULAR HGB 30.4 pg (27.0-31.0); MEAN CORPUSCULAR HGB CONC 33.2 g/dl (33.0-37.0); MEAN PLATELET VOLUME 10.7 fl (9.6-12.3); MONO # 0.3 10*3/uL (0.1-1.0); MONO % 5.9 % (3.0-9.0); NEUT # 3.2 10*3/uL (2.3-7.9); NEUT % 67.6 % (47.0-73.0); PLATELET COUNT AUTOMATED 65 10*3/uL (130-400); RED BLOOD COUNT 3.52 10*6/uL (4.10-5.10); RED CELL DISTRI WIDTH 17.2 % (0-14.5); WHITE BLOOD COUNT 4.7 10*3/uL (4.8-10.8)
[2019-09-18 07:09] LABS: ALKALINE PHOSPHATASE 100 U/L (45-117); BUN 15 mg/dl (7-24); CHLORIDE 116 mmol/L (98-107); CREATININE 0.86 mg/dL (0.55-1.02); POTASSIUM 3.6 mmol/L (3.5-5.1); SGOT/AST 17 IU/L (3-35); SGPT/ALT 16 U/L (12-78); SODIUM 146 mmol/L (136-145); TOTAL PROTEIN 4.9 gm/dL (6.4-8.2)
[2019-09-18 08:00] VITALS: BP 168/73
--- NOTE | 2019-09-18 09:00 | NUR ---
case management visits with patient, she states she will return home when medically stable, discussed with her VNA and she declines any services, she states she will come to the wound clinic for any needed treatment
--- NOTE | 2019-09-18 09:08 | NUR ---
CORNELIO PALOMARES NOTIFIED OF RIGHT ARM EDEMA
--- NOTE | 2019-09-18 09:12 | NUR ---
While the patient was signing her Medicare Rights Form. Patient stated she has complaints about the food she has received from the kitchen during her stay. MANAGER SALES TRAINING apologized and explained would reach out to someone to come speak with her. MANAGER SALES TRAINING emailed Isa Meza to see if she would be able to speak to the patient about her complaints. -OSVALDO Flores
--- NOTE | 2019-09-18 11:12 | NUR ---
Nutritional Support Services Note: Discussing with pt po intake and likes and dislikes. Pt is very unhappy regarding the quality and temperature of all the foods. She has numerous compliants, fresh fruit is hard, cottage cheese is spoiled, muffins are cold, sloppy joes are terrible, daniel pie crust is burnt, sweet pototoes are cold and small. Attempted to help pt order other food, she refused. Is having friends bring her in food. Encourged her to allow me to help which she refused. Will contine to follow. Ghada Meza Rdn Ld
--- NOTE | 2019-09-18 11:29 | NUR ---
Debbie OLGUIN notified of wound care recommendations.
[2019-09-18 11:43] VITALS: BP 175/62
[2019-09-18 16:00] VITALS: BP 158/70
--- NOTE | 2019-09-18 19:30 | NUR ---
PATIENT LAYING IN BED VISITING WITH A FRIEND. NO COMPLAINTS AT THIS TIME. CALL LIGHT WITHIN REACH. BED LOCKED IN LOWEST POSITION.
[2019-09-18 20:00] VITALS: BP 180/68
--- NOTE | 2019-09-18 20:08 | NUR ---
NOTIFIED DR. SUMMERS OF PATIENT'S BLOOD PRESSURE OF 180/68 WITH A HEART RATE OF 95. DR. SUMMERS STATED HE WILL PUT ORDERS IN.
--- NOTE | 2019-09-18 20:26 | NUR ---
PATIENT GIVEN PRN DULCOLAXFOR C/O NO BM FOR 3 DAYS. WILL MONITOR FOR EFFECTIVENESS.
--- NOTE | 2019-09-18 21:08 | NUR ---
PATIENT'S DRESSING TO RLE AND BED WERE SATURATED. DRESSING CHANGED TO RLE PER ORDER. BED LINENS CHANGED. PATIENT REPOSITIONED FOR COMFORT. CALL LIGHT WITHIN REACH.
--- NOTE | 2019-09-18 22:47 | NUR ---
PATIENT C/O GENERALIZED DISCOMFORT FROM LAYING IN BED. PATIENT MEDICATED WITH PRN TYLENOL AND PATIENT RESPOSITIONED IN BED. PILLOW PLACED UNDER PATIENT. WILL MONITOR FOR EFFECTIVENESS.
--- NOTE | 2019-09-18 23:37 | NUR ---
PATIENT MEDICATED WITH PRN RESTORIL REQUESTED FOR INSOMNIA. WILL MONITOR FOR EFFECTIVENESS.
--- NOTE | 2019-09-18 23:40 | NUR ---
PER PATIENT PRN TYLENOL EFFECTIVE.
[2019-09-19] VITALS: BP 155/71
--- NOTE | 2019-09-19 00:30 | NUR ---
PRN RESTORIL EFFECTIVE. PATIENT ASLEEP IN BED.
--- NOTE | 2019-09-19 06:46 | NUR ---
PATIENT'S DRESSINGS TO RLE SATURATED WITH DRAINAGE. NEW DRESSINGS APPLIED TO RLE PER ORDER. PATIENT REPOSITIONED IN BED. CALL LIGHT WITHIN REACH. NO OTHER NEEDS AT THIS TIME.
[2019-09-19 08:00] VITALS: BP 154/65
--- NOTE | 2019-09-19 09:00 | NUR ---
case management visits with patient, discussed with her VNA and she declines any home needs at this time, case management will follow
[2019-09-19 12:00] VITALS: BP 153/89
[2019-09-19 16:00] VITALS: BP 154/79
[2019-09-19 20:00] VITALS: BP 141/66
--- NOTE | 2019-09-19 20:14 | NUR ---
24 HR chart check completed.
[2019-09-20] VITALS: BP 179/69
[2019-09-20 08:00] VITALS: BP 140/59
--- NOTE | 2019-09-20 09:00 | NUR ---
case management visits with patient, again discussed with her VNA and she declines any services at this time, case management will follow for any needs
--- NOTE | 2019-09-20 09:42 | NUR ---
Follow up with Dr. Monroy in wound care clinic on 09/21/19 at 11:30am, call [phone] with any concerns Follow up with Dr. Monroy in wound care clinic on 09/25/19 at 11:30am, call [phone] with any concerns
[2019-09-20 12:00] VITALS: BP 140/59
--- NOTE | 2019-09-20 13:34 | NUR ---
NOTIFIED OF NEW CONSULT ORDER.
[2019-09-20 16:00] VITALS: BP 142/62
[2019-09-20 20:00] VITALS: BP 148/58
--- NOTE | 2019-09-20 23:15 | NUR ---
RESTORIL GIVEN FOR SLEEP. SEE MAR.
[2019-09-21] VITALS: BP 157/61
--- NOTE | 2019-09-21 01:20 | NUR ---
PATIENT AWAKE DRESSING RIGHT LEG SATURATED. DRESSING CHANGED TO RIGHT LEG AND BEDLINENS CHANGED.
--- NOTE | 2019-09-21 02:10 | NUR ---
24 HR chart check completed.
--- NOTE | 2019-09-21 03:21 | NUR ---
sleeping no acute distress noted.
--- NOTE | 2019-09-21 06:36 | NUR ---
REFUSED BLOOD WORK THIS MORNING.
--- NOTE | 2019-09-21 06:37 | NUR ---
NOTIFIED DR. SUMMERS PATIENT REFUSED HER LAB WORK THIS AM.
[2019-09-21 08:00] VITALS: BP 152/81
--- NOTE | 2019-09-21 09:00 | NUR ---
case management visits with patient, she states she will return home when medically stable and is agreeable to OV, case management will notify OV when patient is medically stable for discharge
[2019-09-21 12:00] VITALS: BP 150/74
[2019-09-21 12:23] LABS: BASO % 0.4 % (0.0-1.0); EOS # 0.1 10*3/uL (0.0-0.4); EOS % 2.2 % (1.0-4.0); HEMATOCRIT 34.1 % (37.0-47.0); HEMOGLOBIN 11.5 g/dl (12.0-16.0); LYMPH # 0.7 10*3/uL (1.3-4.4); LYMPH % 12.7 % (27.0-41.0); MEAN CELL VOLUME 90.9 fl (81.0-99.0); MEAN CORPUSCULAR HGB 30.7 pg (27.0-31.0); MEAN CORPUSCULAR HGB CONC 33.7 g/dl (33.0-37.0); MEAN PLATELET VOLUME 10.2 fl (9.6-12.3); MONO # 0.3 10*3/uL (0.1-1.0); MONO % 5.7 % (3.0-9.0); NEUT # 4.3 10*3/uL (2.3-7.9); NEUT % 78.4 % (47.0-73.0); PLATELET COUNT AUTOMATED 69 10*3/uL (130-400); RED BLOOD COUNT 3.75 10*6/uL (4.10-5.10); RED CELL DISTRI WIDTH 17.2 % (0-14.5); WHITE BLOOD COUNT 5.4 10*3/uL (4.8-10.8)
[2019-09-21 12:53] LABS: ALBUMIN 2.2 gm/dl (3.1-4.5); BUN 15 mg/dl (7-24); CHLORIDE 113 mmol/L (98-107); CREATININE 0.92 mg/dL (0.55-1.02); POTASSIUM 3.4 mmol/L (3.5-5.1); SGOT/AST 19 IU/L (3-35); SGPT/ALT 16 U/L (12-78); SODIUM 145 mmol/L (136-145); TOTAL PROTEIN 5.2 gm/dL (6.4-8.2)
[2019-09-21 12:54] LABS: ALKALINE PHOSPHATASE 110 U/L (45-117)
--- NOTE | 2019-09-21 14:07 | NUR ---
Occupational Therapy evaluation offered this date and screen completed. Patient reports that she gets out of bed and is independent in mobility without a device and independent in ADLs. She says she is interested in having a nurse come to her home to wrap her LEs and tend to her wounds 2x/day once discharged. OT reported that she would need to speak with case management regarding services for d/c. OTR informed case management manager of patients request. Discharge OT referral d/t patients refusal d/t no need. Thank you. Renetta Vera OTr/l
--- NOTE | 2019-09-21 15:05 | NUR ---
case management faxed all of patient's home information to Jennie at [facility] with tenative discharged date tomorrow
[2019-09-21 16:00] VITALS: BP 154/58
[2019-09-21 20:00] VITALS: BP 155/82
[2019-09-22] VITALS: BP 162/63
--- NOTE | 2019-09-22 00:10 | NUR ---
PER PATIENT REQUEST SLEEPING PILL GIVEN AT THIS TIME, SEE EMAR. PATIENT ALERT AND ORIENTED AT THIS TIME, WATCHING TELEVISION.
--- NOTE | 2019-09-22 06:18 | NUR ---
PATIENT REFUSED TO ALLOW THE METAL SHAPING MACHINE OPERATOR TO DRAW HER AM LABS AT THIS TIME.
--- NOTE | 2019-09-22 06:21 | NUR ---
DR. SUMMERS AWARE THAT PATIENT REFUSED AM LAB WORK
[2019-09-22 08:00] VITALS: BP 165/68
--- NOTE | 2019-09-22 09:00 | NUR ---
case management visits with patient, she will return home when medically stable, [facility] was notified that patient is a possibly discharge to home today,
--- NOTE | 2019-09-22 09:24 | NUR ---
PHYSICAL THERAPY Physical therapy screen completed. Pt is independent with ambulation and ADLs without an assistive device. Pt has no concerns. no PT needs at this time. Thank you Vandana Ball, PT, DPT
--- NOTE | 2019-09-22 09:57 | NUR ---
ANKUSH LEES [id number] Please refer to the physician's history and physical for past medical history, comorbid conditions, and allergies. Diagnosis: CELLULITIS OF LOWER EXTREMITY Carlito Score: 18,AT RISK WOUND DESCRIPTIONS: Wound Number: 1 Location of the wound: right lower leg proximal Thickness: Full Size: 0.5cm x 0.5cm x <0.1cm Tunneling: none Undermining: none Sinus Tract: none Presence of Exudate: Serous Amount: Heavy Color: Yellow, red Odor: None Periwound Skin Appearance: Erythema 19cm x 35cm, pitting edema noted Wound edges: approximated Pain (associated with wound): none at time of assessment How does patient state this happened? pt stated this all happened from waste management back in December from a trash can hit her leg Wound Number: 2 Location of the wound: right lower lateral leg Thickness: Full Size: 1.2cm x 2.0cm x 0.1cm Tunneling: none Undermining: none Sinus Tract: none Presence of Exudate: Serous Amount: Heavy Color: Yellow, red Odor: None Periwound Skin Appearance: Erythema 19cm x 35cm, pitting edema noted Wound edges: approximated Pain (associated with wound): none at time of assessment How does patient state this happened? pt stated this all happened from waste management back in December from a trash can hit her leg Wound Number: 3 Location of the wound: right lower leg medial Thickness: Full Size: 0.6cm x 0.7cm x 0.1cm Tunneling: none Undermining: none Sinus Tract: none Presence of Exudate: Serous Amount: Heavy Color: Red, yellow Odor: None Periwound Skin Appearance: Erythema 19cm x 35cm, pitting edema noted Wound edges: approximated Pain (associated with wound): none at time of asesssment How does patient state this happened? pt stated this all happened from waste management back in December from a trash can hit her leg Wound Number:4 Right lower extremity distal no open areas noted at time of assessment. Right lower extremity is still warm and red to touch at time of assessment. Pitting edema noted at time of assessment. Wound Number: 5 Location of the wound: right posterior lower distal area Thickness: Full Size: 0.5cm x 0.6cm x 0.1cm Tunneling: none Undermining: none Sinus Tract: none Presence of Exudate: Serous Amount: Heavy Color: Red, yellow Odor: None Periwound Skin Appearance: Erythema 19cm x 35cm, pitting edema noted Wound edges: approximated Pain (associated with wound): none at time of assessment How does patient state this happened? pt stated this all happened from waste management back in December from a trash can hit her leg Wound Number: 6 Location of the wound: right posterior lower distal area Thickness: Full Size: 0.6cm x 0.7cm x 0.2cm Tunneling: none Undermining: none Sinus Tract: none Presence of Exudate: Serous Amount: Heavy Color: Red, yellow Odor: None Periwound Skin Appearance: Erythema 19cm x 35cm, pitting edema noted Wound edges: approximated Pain (associated with wound): none at time of assessment How does patient state this happened? pt stated this all happened from waste management back in December from a trash can hit her leg Wound Number: 7 Location of the wound: right ac Type of wound: skin tear Thickness: Partial Size: 5.6cm x 7.5cm x 0.1cm Tunneling: none Undermining: none Sinus Tract: none Presence of Exudate: Serosanguineous Amount: Light Color: Red Odor: None Periwound Skin Appearance: Edema Wound edges: approximated Pain (associated with wound): none at time of assessment How does patient state this happened? pt stated this was from her iv Patient left leg have several intact blisters noted. Red and blanchable at time of assessment areas is measuring 20cm x 38cm x <0.1cm. Surface the patient is resting on: Isoflex SKIN PREVENTION RECOMMENDATION: 1. Pressure redistribution support surface as appropriate 2. Elevate heels 3. Remove boots/TEDS every shift and reapply 4. Head of bed 30 degrees as tolerated 5. Assess nutrition and hydration 6. Manage moisture 7. Avoid the use of containment devices while in bed 8. Use absorptive products on surfaces limit layers of linens on bed 9. Turn and reposition every 1-2 hours in bed and every 1 hour in chair as tolerated 10. Weight shifts every 15 minutes while up in chair 11. Offloading with pillows or device to keep heels elevated off bed 12. Monitor skin at least every shift 13. Inspect under medical devices twice a day WOUND TREATMENT RECOMMENDATIONS: Patient will follow up in the wound care center on 09/28/19 at 11:30. this nurse inform her if she needs to follow up sooner to call and see if her appointments could get changed. D/C dressing change to right ac. clarify full thickness guidelines: Cleanse right lower extremities areas with nss and apply therahoney sheets cover with maxorb II then apply abd pad and lightly wrap with kerlix daily and prn for soiling. Continue skin tear guidelines to right ac.
[2019-09-22] MEDS ORDERED: LEVOFLOXACIN500 MG PO (11:14)
[2019-09-22] MEDS ORDERED: VIBRAMYCIN100 MG PO (11:14)
[2019-09-22] MEDS ORDERED: VITAMIN D32000 UNI1 PO (11:15)
[2019-09-22] MEDS ORDERED: LISINOPRIL5 MG PO (11:15)
[2019-09-22] MEDS ORDERED: PHARMASSURE FO0.4 MG PO (11:15)
--- NOTE | 2019-09-22 11:53 | NUR ---
Debbie OLGUIN notified of wound care recommendations.
[2019-09-22 12:00] VITALS: BP 158/67
[2019-09-22 16:00] VITALS: BP 164/52
--- NOTE | 2019-09-22 19:58 | NUR ---
Discharge instructions reviewed with patient/family. Patient receptive and verbalizes understanding. Follow-up care arranged. Written instructions given to patient/family. DARNELL HUSSEIN
[2019-09-23] MEDS ORDERED: LEVOFLOXACIN500 MG PO ×2 (11:26→11:30)
[2019-09-23] MEDS ORDERED: ZESTRIL,PRINIVIL5 MG PO (11:30)
[2019-09-23] MEDS ORDERED: VIBRAMYCIN100 MG PO (11:30)
[2019-09-23] MEDS ORDERED: PHARMASSURE FO0.4 MG PO (11:31)
== END 2019-09-22 19:51 | disposition home health service (06) | DRG 871 ==
LOC: ED 12:03 → 5E 15:17 → EDHOLD 15:17 → 5E 15:28
PROVIDERS: Family Medicine; Nurse Practitioner Family; Registered Nurse; ADMIT Family Medicine
DX: A41.51 Sepsis due to Escherichia coli [E. coli] (principal); E43 Unspecified severe protein-calorie malnutrition; J18.9 Pneumonia, unspecified organism; L03.115 Cellulitis of right lower limb; R17 Unspecified jaundice; L97.911 Non-pressure chronic ulcer of unspecified part of right lower leg limited to breakdown of skin; N39.0 Urinary tract infection, site not specified; I87.2 Venous insufficiency (chronic) (peripheral); R09.02 Hypoxemia; I80.8 Phlebitis and thrombophlebitis of other sites; D69.6 Thrombocytopenia, unspecified; R79.82 Elevated C-reactive protein (CRP); E11.65 Type 2 diabetes mellitus with hyperglycemia; I10 Essential (primary) hypertension; Z88.1 Allergy status to other antibiotic agents; Z88.2 Allergy status to sulfonamides; Z82.49 Family history of ischemic heart disease and other diseases of the circulatory system; Z79.84 Long term (current) use of oral hypoglycemic drugs; Z68.24 Body mass index [BMI] 24.0-24.9, adult

== ENCOUNTER → 2019-10-03 | Outpatient (CLI) | payer MEDICARE ==
[~2019-10-03] MED LIST changes: +LEVOFLOXACIN500 MG PO; +LISINOPRIL5 MG PO; +PHARMASSURE FO0.4 MG PO; +VIBRAMYCIN100 MG PO; +VITAMIN D32000 UNI1 PO; +ZESTRIL,PRINIVIL5 MG PO
[2019-10-03 12:50] LABS: HEMATOCRIT 37.8 % (37.0-47.0); HEMOGLOBIN 12.7 g/dl (12.0-16.0); MEAN CELL VOLUME 93.8 fl (81.0-99.0); MEAN CORPUSCULAR HGB 31.5 pg (27.0-31.0); MEAN CORPUSCULAR HGB CONC 33.6 g/dl (33.0-37.0); PLATELET COUNT AUTOMATED 46 10*3/uL (130-400); RED BLOOD COUNT 4.03 10*6/uL (4.10-5.10); RED CELL DISTRI WIDTH 15.9 % (0-14.5); WHITE BLOOD COUNT 4.5 10*3/uL (4.8-10.8)
[2019-10-03 13:03] LABS: ALBUMIN 2.7 gm/dl (3.1-4.5); ALKALINE PHOSPHATASE 125 U/L (45-117); BUN 17 mg/dl (7-24); CHLORIDE 110 mmol/L (98-107); CREATININE 0.95 mg/dL (0.55-1.02); PHOSPHOROUS 2.3 mg/dL (2.5-4.9); POTASSIUM 3.5 mmol/L (3.5-5.1); SGOT/AST 27 IU/L (3-35); SGPT/ALT 21 U/L (12-78); SODIUM 145 mmol/L (136-145); TOTAL PROTEIN 5.8 gm/dL (6.4-8.2)
[2019-10-03 13:54] LABS: OVALOCYTES FEW; PLATELET SUFFICIENCY LOW (NORMAL); TOTAL CELLS COUNTED 100 #CELLS
== END | disposition home or self-care (01) ==
LOC: RESCLI 00:15
PROVIDERS: Internal Medicine
DX: S81.801D Unspecified open wound, right lower leg, subsequent encounter (principal); E11.9 Type 2 diabetes mellitus without complications; I10 Essential (primary) hypertension; J30.9 Allergic rhinitis, unspecified; E78.5 Hyperlipidemia, unspecified; R53.81 Other malaise; E03.9 Hypothyroidism, unspecified; E55.9 Vitamin D deficiency, unspecified; D51.0 Vitamin B12 deficiency anemia due to intrinsic factor deficiency; R60.0 Localized edema; J90 Pleural effusion, not elsewhere classified; E87.6 Hypokalemia; Z79.899 Other long term (current) drug therapy; X58.XXXD Exposure to other specified factors, subsequent encounter

== ENCOUNTER → 2019-11-09 | Outpatient (CLI) | payer MEDICARE | END | disposition home or self-care (01) | LOC: RESCLI 00:34 | DX: I11.0 Hypertensive heart disease with heart failure (principal); E03.9 Hypothyroidism, unspecified; E55.9 Vitamin D deficiency, unspecified; D51.0 Vitamin B12 deficiency anemia due to intrinsic factor deficiency; I50.32 Chronic diastolic (congestive) heart failure; Z79.899 Other long term (current) drug therapy; Z88.2 Allergy status to sulfonamides ==

== ENCOUNTER 2019-12-11 15:12 | Inpatient (IN) | payer MEDICARE ==
[~2019-12-11] VITALS: Ht 167.6 cm; Wt 71.7 kg
[2019-12-11 15:25] VITALS: BP 168/71
--- NOTE | 2019-12-11 15:59 | NUR ---
PT GIVES ME PERMISSION TO CONTACT HER COUSIN JOSE PEREZ AND GIVE HER AN UPDATE ON WHAT IS GOING ON AT THIS TIME.
[2019-12-11 16:01] LABS: HEMATOCRIT 45.9 % (37.0-47.0); HEMOGLOBIN 14.4 g/dl (12.0-16.0); MEAN CELL VOLUME 97.9 fl (81.0-99.0); MEAN CORPUSCULAR HGB 30.7 pg (27.0-31.0); MEAN CORPUSCULAR HGB CONC 31.4 g/dl (33.0-37.0); PLATELET COUNT AUTOMATED 44 10*3/uL (130-400); RED BLOOD COUNT 4.69 10*6/uL (4.10-5.10); WHITE BLOOD COUNT 4.6 10*3/uL (4.8-10.8)
[2019-12-11 16:11] LABS: ACT PARTIAL THROMBO TIME 28.8 SECONDS (20.0-32.1); INTERNATIONAL NORM RATIO 1.4 (2.0-3.5)
[2019-12-11 16:15] LABS: LIPASE 245 U/L (73-393)
[2019-12-11 16:16] LABS: ALKALINE PHOSPHATASE 132 U/L (45-117); BUN 17 mg/dl (7-24); CHLORIDE 108 mmol/L (98-107); POTASSIUM 4.4 mmol/L (3.5-5.1); SGOT/AST 18 IU/L (3-35); SGPT/ALT 27 U/L (12-78); SODIUM 144 mmol/L (136-145); TOTAL PROTEIN 6.5 gm/dL (6.4-8.2)
[2019-12-11 16:17] LABS: TROPONIN I 0.027 ng/ml (<0.045)
[2019-12-11 16:22] LABS: BASOPHILS 1 % (0-1); TOTAL CELLS COUNTED 100 #CELLS
[2019-12-11 16:23] LABS: PLATELET SUFFICIENCY LOW (NORMAL)
[2019-12-11 16:30] VITALS: BP 146/69
[2019-12-11 17:03] VITALS: BP 140/60
--- NOTE | 2019-12-11 17:24 | NUR ---
PT RESTING IN BED WITH EYES CLOSED. VS STABLE AT THIS TIME. BED IS IN LOW POSITION. SIDE RAILS UP X2. CALL PETERSON WITHIN REACH. WILL CONTINUE TO MONITOR.
--- NOTE | 2019-12-11 18:40 | NUR ---
A 64, admitted to [facility], under the services of CLIFFORD Warner DO with a diagnosis of RESPIRATORY FAILURE. Chief complaint is SHORTNESS OF BREATH. Patient arrived via stretcher from ER. Monitor applied. Initial assessment completed. Vital signs taken and recorded. CLIFFORD WARNER DO notified of admission to the unit. Orders received. See assessment for past medical history, medications and allergies. Patient and/or family oriented to unit. [facility] visitation policy reviewed. Clothing/patient valuable form completed. TITA LEBRON
[2019-12-11 18:50] VITALS: BP 144/52
--- NOTE | 2019-12-11 18:50 | NUR ---
DR BRADFORD MADE AWARE OF NEED FOR WOUND ORDERS.
--- NOTE | 2019-12-11 19:15 | NUR ---
DR KEENE WAS NOTIFIED OF CONSULT BY FLOYD CARDENAS RN.
[2019-12-11 20:00] VITALS: BP 124/49
--- NOTE | 2019-12-11 20:32 | NUR ---
CT AND DR GOLDBERG NOTIFIED OF PT REFUSING CT SCAN TONIGHT SHE HASN'T EATEN ALL DAY AND WANTS TO DRINK. PT VERY INSISTENT. SHE STATES SHE WILL HAVE IT TOMORROW BUT THAT "I HAVE TO EAT TONIGHT!" SHE REFUSES TO EAT THE "SLIMY TURKEY SANDWICHES YOU HAVE HERE" AND ORDERED DELIVERY. SHE REFUSES BEING DIABETIC. STRICT I&O MAINTAINED.
--- NOTE | 2019-12-11 21:30 | NUR ---
PT EATING ORDER OUT FOOD.
[2019-12-12] VITALS (7 sets, daily range): BP systolic 101–137; BP diastolic 37–59
[2019-12-12 06:22] LABS: HEMATOCRIT 41.5 % (37.0-47.0); HEMOGLOBIN 12.7 g/dl (12.0-16.0); MEAN CELL VOLUME 99.8 fl (81.0-99.0); MEAN CORPUSCULAR HGB 30.5 pg (27.0-31.0); MEAN CORPUSCULAR HGB CONC 30.6 g/dl (33.0-37.0); MEAN PLATELET VOLUME 10.3 fl (9.6-12.3); PLATELET COUNT AUTOMATED 46 10*3/uL (130-400); RED BLOOD COUNT 4.16 10*6/uL (4.10-5.10); RED CELL DISTRI WIDTH 15.8 % (0-14.5); WHITE BLOOD COUNT 5.1 10*3/uL (4.8-10.8)
[2019-12-12 06:23] LABS: ACT PARTIAL THROMBO TIME 30.2 SECONDS (20.0-32.1); ALBUMIN 2.6 gm/dl (3.1-4.5); BUN 19 mg/dl (7-24); CHLORIDE 108 mmol/L (98-107); CHOLESTEROL 103 mg/dL (<200); HDL CHOLESTEROL 63 mg/dl (40-60); INTERNATIONAL NORM RATIO 1.4 (2.0-3.5); POTASSIUM 4.4 mmol/L (3.5-5.1); SGOT/AST 14 IU/L (3-35); SODIUM 146 mmol/L (136-145)
[2019-12-12 06:31] LABS: ALKALINE PHOSPHATASE 109 U/L (45-117); FREE T4 1.02 ng/dl (0.76-1.46); LDH 143 U/L (84-246); LDL CHOLESTEROL 28 mg/dL (9-159); PHOSPHOROUS 3.7 mg/dL (2.5-4.9); SGPT/ALT 25 U/L (12-78); TOTAL PROTEIN 5.8 gm/dL (6.4-8.2); TRIGLYCERIDES 58 mg/dl (<150); VLDL CHOLESTEROL 12 mg/dL (6-40)
--- NOTE | 2019-12-12 06:33 | NUR ---
ANKUSH LEES [id number] Please refer to the physician's history and physical for past medical history, comorbid conditions, and allergies. Diagnosis: ACUTE RESPIRATORY FAILURE WITH HYPOXIA ACUTE Carlito Score: 20,LOW OR NO RISK WOUND DESCRIPTIONS: Wound Number:1 right lateral lower leg. 9.0cm x 5.5cm x 0.1cm dry flaky area noted at time of assessment. No drainage noted at time of assessment. Erythema and edema noted at time of assessment. Wound Number: 2 Location of the wound: right medial lower leg Thickness: Full Size: 0.7cm x 0.6cm x <0.1cm Tunneling: none Undermining: none Sinus Tract: none Presence of Exudate: none Amount: None Color: Brown Odor: None Periwound Skin Appearance: Erythema, edema Wound edges: approximated Pain (associated with wound): none at time of assessment How does patient state this happened? pt stated she was released from the Wound Care Center with because she was healed Wound Number: 3 Location of the wound: right elbow Type of wound: skin tear Thickness: Partial Size: 1.3cm x 1.0cm x <0.1cm Tunneling: none Undermining: none Sinus Tract: none Presence of Exudate: none Amount: None Color: Brown, red Odor: None Periwound Skin Appearance: Normal Wound edges: approximated Pain (associated with wound): none at time of assessment How does patient state this happened? pt stated she bumped this area Left lower extremity is dry, flaky and red at time of assessment. No drainage noted at time of assessment. Surface the patient is resting on: Position Pro SKIN PREVENTION RECOMMENDATION: 1. Pressure redistribution support surface as appropriate 2. Elevate heels 3. Remove boots/TEDS every shift and reapply 4. Head of bed 30 degrees as tolerated 5. Assess nutrition and hydration 6. Manage moisture 7. Avoid the use of containment devices while in bed 8. Use absorptive products on surfaces limit layers of linens on bed 9. Turn and reposition every 1-2 hours in bed and every 1 hour in chair as tolerated 10. Weight shifts every 15 minutes while up in chair 11. Offloading with pillows or device to keep heels elevated off bed 12. Monitor skin at least every shift 13. Inspect under medical devices twice a day WOUND TREATMENT RECOMMENDATIONS: Skin tear guidelines: Cleanse right elbow with nss and apply sureprep around the wound therahoney to wound bed and cover with optifoam gentle every 2 days and prn for soiling. Full thickness guidelines: Cleanse right medial aspect of lower leg with nss and apply sureprep around the wound therahoney to wound bed and cover with optifoam gentle every 2 days and prn for soiling. Cleanse bilateral lower extremities with soap and water and apply lac- hydrin bid. Heel raiser pro boots to bilateral feet while in bed. Patient states she will take care of these areas since she was discharged from the wound care center.
[2019-12-12 07:00] LABS: PLATELET SUFFICIENCY LOW (NORMAL); POLYCHROMASIA SLIGHT; TOTAL CELLS COUNTED 100 #CELLS
[2019-12-12 07:01] LABS: OVALOCYTES FEW
[2019-12-12 07:43] LABS: PTH INTACT 194.6 pg/mL (18.5-88.0); VITAMIN D, 25-HYDROXY 16.8 ng/mL (30-100)
--- NOTE | 2019-12-12 08:34 | NUR ---
Dr. Isabel notified of wound care recommendations.
--- NOTE | 2019-12-12 13:00 | NUR ---
Supervisor Rides in to talk to patient. Patient states lives at home alone with her family checking in on her. There are 13 steps in the home. Physician: resident clinic Pharmacy: [facility] in [place] Home health services: none Patient's level of ADLs: INDEPENDENT Patient has working utilities: yes DME: none Follow-up physician's appointment after d/c: will be made by the hospitalist nurse director upon discharge Does patient want to access PORTAL?: no Discharge plan discussed with patient. She lives at home with her family checking in on her. She is independent in her ADLs and ambulation. Discussed home health care services and she denies any home needs. She drives and works at [employer]. When medically stable she will be discharged to home. She states one of her cousins will provide transportation on discharge. VOLODYMYR ROSAS
--- NOTE | 2019-12-12 15:06 | NUR ---
PATIENT MEDICATED WITH ATIVAN 0.5MG IV PER PRN ORDER. PATIENT VERY ANXIOUS AND UPSET AFTER TALKING WITH REGARDING CAT SCAN RESULTS. FRIEND AT BEDSIDE. WILL CONTINUE TO MONITOR.
--- NOTE | 2019-12-12 16:00 | NUR ---
PATIENT ASLEEP FROM ATIVAN. POX DECREASED TO 83% ON 4L. INCREASED TO 100% NON-REBREATHER.
--- NOTE | 2019-12-12 17:43 | NUR ---
PATIENT UNAROUSABLE AT THIS TIME. ABGS ORDERED AT THIS TIME.
[2019-12-12 18:10] LABS: ABG BASE EXCESS 7.9 mmol/L (-2.0-2.0)
[2019-12-12 18:16] LABS: ARTERIAL BLOOD GAS PH 7.157 (7.35-7.45)
--- NOTE | 2019-12-12 18:20 | NUR ---
PATIENT INTUBATED #7.0 ETT. 23 LIP. SEDATED WITH 20 ETOMIDATE AND 80 SUCCS. #18 OGT INSERTED. #16 BRUNSON CATHETER INSERTED WITH 150CC RETURN OF CLEAR STRAW URINE. DIPRIVAN GTT STARTED.
[2019-12-12 20:27] LABS: ABG BASE EXCESS 10.4 mmol/L (-2.0-2.0); ARTERIAL BLOOD GAS PH 7.512 (7.35-7.45)
--- NOTE | 2019-12-12 20:38 | NUR ---
DR. KEENE NOTIFIED OF ABG RESULTS, ORDERS RECEIVED.
--- NOTE | 2019-12-12 21:21 | NUR ---
REPORT GIVEN TO [facility] AND [facility] RECEIVEING RN. ALL BELONGINGS WITH PATIENTS FAMILY. HEARING AIDE SENT WITH PATIENT (PATIENT WEARING). FAMILY AT BEDSIDE AWAITING TRANSPORT. ALL VS STABLE. JAKI FRANCO RN
--- NOTE | 2019-12-12 21:46 | NUR ---
PT. IN PROCESS OF TRANSFER VIA [facility] TO [facility].
--- NOTE | 2019-12-12 21:59 | NUR ---
PT. LEFT VIA [facility]. VS STABLE. FAMILY AWARE. REPORT GIVEN TO [facility]. JAKI FRANCO RN
== END 2019-12-12 22:21 | disposition short-term general hospital (02) | DRG 208 ==
LOC: ED 15:12 → EDHOLD 17:53 → ICCU 18:01
PROVIDERS: Emergency Medicine; Internal Medicine; Internal Medicine Critical Care Medicine; ADMIT Internal Medicine
PROC: 0BH17EZ Insertion of Endotracheal Airway into Trachea, Via Natural or Artificial Opening (ICD-10-PCS; principal; 2019-12-12)
PROC: 5A1935Z Respiratory Ventilation, Less than 24 Consecutive Hours (ICD-10-PCS; principal; 2019-12-12)
DX: J96.01 Acute respiratory failure with hypoxia (principal); I50.33 Acute on chronic diastolic (congestive) heart failure; E43 Unspecified severe protein-calorie malnutrition; E87.0 Hyperosmolality and hypernatremia; R65.10 Systemic inflammatory response syndrome (SIRS) of non-infectious origin without acute organ dysfunction; J98.11 Atelectasis; E87.8 Other disorders of electrolyte and fluid balance, not elsewhere classified; I87.2 Venous insufficiency (chronic) (peripheral); D69.6 Thrombocytopenia, unspecified; E80.6 Other disorders of bilirubin metabolism; D72.819 Decreased white blood cell count, unspecified; E11.9 Type 2 diabetes mellitus without complications; I11.0 Hypertensive heart disease with heart failure; K74.60 Unspecified cirrhosis of liver; E55.9 Vitamin D deficiency, unspecified; N94.89 Other specified conditions associated with female genital organs and menstrual cycle; Z82.49 Family history of ischemic heart disease and other diseases of the circulatory system; Z88.1 Allergy status to other antibiotic agents; Z88.2 Allergy status to sulfonamides; Z79.899 Other long term (current) drug therapy; Z68.25 Body mass index [BMI] 25.0-25.9, adult

== ENCOUNTER 2020-02-26 14:14 | Inpatient (IN) | payer MEDICARE ==
[~2020-02-26] VITALS: Ht 170.2 cm; Wt 59.9 kg
[2020-02-26 14:16] VITALS: BP 124/62
[2020-02-26 15:36] LABS: BASO % 0.2 % (0.0-1.0); EOS # 0.2 10*3/uL (0.0-0.4); EOS % 3.4 % (1.0-4.0); HEMOGLOBIN 8.9 g/dl (12.0-16.0); LYMPH # 1.1 10*3/uL (1.3-4.4); LYMPH % 22.3 % (27.0-41.0); MEAN CELL VOLUME 98.2 fl (81.0-99.0); MEAN CORPUSCULAR HGB 32.4 pg (27.0-31.0); MEAN PLATELET VOLUME 9.3 fl (9.6-12.3); MONO # 0.4 10*3/uL (0.1-1.0); MONO % 8.3 % (3.0-9.0); NEUT # 3.3 10*3/uL (2.3-7.9); NEUT % 65.4 % (47.0-73.0); PLATELET COUNT AUTOMATED 50 10*3/uL (130-400); RED BLOOD COUNT 2.75 10*6/uL (4.10-5.10)
[2020-02-26 15:36] LABS: ABG BASE EXCESS -2.5 mmol/L (-2.0-2.0); ARTERIAL BLOOD GAS PH 7.445 (7.35-7.45)
[2020-02-26] MEDS ORDERED: VENTOLIN 02.5 MG/3 M NEB (15:40)
[2020-02-26] MEDS ORDERED: ALDACTONE50 M1 PO (15:41)
[2020-02-26] MEDS ORDERED: ALDACTONE25 M1 PO (15:41)
[2020-02-26] MEDS ORDERED: COL-RITE100 M1 PO (15:42)
[2020-02-26] MEDS ORDERED: FOSAMAX PLUS D1 EACH PO (15:44)
[2020-02-26] MEDS ORDERED: CONSTULOSE10 GM/151 PO (15:45)
[2020-02-26] MEDS ORDERED: LINZESS145 MC1 PO (15:46)
[2020-02-26] MEDS ORDERED: LASIX20 MG PO (15:46)
[2020-02-26 15:47] LABS: ACT PARTIAL THROMBO TIME 29.4 SECONDS (20.0-32.1); INTERNATIONAL NORM RATIO 1.3 (2.0-3.5)
[2020-02-26] MEDS ORDERED: GLUCOPHAGE500 M1 PO (15:47)
[2020-02-26] MEDS ORDERED: MIRALAX17 GM PO (15:47)
[2020-02-26] MEDS ORDERED: REGLAN5 MG PO (15:49)
[2020-02-26] MEDS ORDERED: REMERON15 M2 PO (15:50)
[2020-02-26] MEDS ORDERED: XIFAXAN550 MG PO (15:51)
[2020-02-26] MEDS ORDERED: RISPERDAL0.5 MG PO (15:51)
[2020-02-26] MEDS ORDERED: SENSIPAR30 MG PO (15:52)
[2020-02-26 15:53] LABS: ALBUMIN 2.1 gm/dl (3.1-4.5); CREATININE 3.32 mg/dL (0.55-1.02); POTASSIUM 4.5 mmol/L (3.5-5.1); TOTAL PROTEIN 5.1 gm/dL (6.4-8.2)
[2020-02-26 15:54] LABS: TROPONIN I 0.03 ng/ml (<0.045)
[2020-02-26] MEDS ORDERED: THERA TABLET400 MCG PO (15:54)
[2020-02-26] MEDS ORDERED: TRAD5TAB1 PO (15:54)
[2020-02-26 16:30] VITALS: BP 127/54
[2020-02-26] MEDS ORDERED: MAGNESIUM HYDROXIDE PO (16:34)
[2020-02-26] MEDS ORDERED: SIMETHICONE PO (16:34)
[2020-02-26] MEDS ORDERED: ALUMINUM HYDROXIDE PO (16:34)
[2020-02-26] MEDS ORDERED: MULTIVITAMINS1 EAC6 PO (16:37)
[2020-02-26] MEDS ORDERED: Ipratropium Brom3 ML INH (16:43)
[2020-02-26] MEDS ORDERED: FOSAMAX70 M1 PO (16:44)
[2020-02-26 20:00] VITALS: BP 116/55
[2020-02-26 20:34] LABS: BILIRUBIN NEGATIVE (NEGATIVE); CLARITY SL CLOUDY (CLEAR); COLOR YELLOW (YELLOW); GLUCOSE NEGATIVE (NEGATIVE); KETONE TRACE (NEGATIVE)
[2020-02-26 20:35] LABS: BLOOD 3+ (NEGATIVE); LEUKO ESTERASE 2+ (NEGATIVE); NITRITE NEGATIVE (NEGATIVE); SPECIFIC GRAVITY 1.015 (1.005-1.030); UROBILINOGEN 0.2 E.U./dl (0.2-1.0)
[2020-02-26 20:46] LABS: CALCIUM OXALATE CRYSTALS 1+; WBC 21-30 wbc/hpf (0-5)
[2020-02-26 20:47] LABS: BACTERIA 1+
[2020-02-27] VITALS: BP 111/57
[2020-02-27 06:15] LABS: CREATININE 3.1 mg/dL (0.55-1.02); FREE T4 1.03 ng/dl (0.76-1.46); PHOSPHOROUS 3.5 mg/dL (2.5-4.9); POTASSIUM 4.1 mmol/L (3.5-5.1)
[2020-02-27 06:16] LABS: HEMATOCRIT 26.4 % (37.0-47.0); HEMOGLOBIN 8.6 g/dl (12.0-16.0); MEAN CELL VOLUME 98.5 fl (81.0-99.0); MEAN CORPUSCULAR HGB 32.1 pg (27.0-31.0); MEAN CORPUSCULAR HGB CONC 32.6 g/dl (33.0-37.0); MEAN PLATELET VOLUME 9.9 fl (9.6-12.3); PLATELET COUNT AUTOMATED 48 10*3/uL (130-400); RED BLOOD COUNT 2.68 10*6/uL (4.10-5.10); RED CELL DISTRI WIDTH 16.8 % (0-14.5); WHITE BLOOD COUNT 4.6 10*3/uL (4.8-10.8)
[2020-02-27 06:21] LABS: THYROID STIM HORMONE (HS) 2.49 uIU/ml (0.358-4.75)
[2020-02-27 07:01] LABS: ATYPICAL LYMPHS 1 % (0-0); BASOPHILS 1 % (0-1); OVALOCYTES MODERATE; PLATELET SUFFICIENCY LOW (NORMAL); SCHISTOCYTES FEW; TOTAL CELLS COUNTED 100 #CELLS
[2020-02-27 08:00] VITALS: BP 118/59
[2020-02-27 12:00] VITALS: BP 118/57
[2020-02-27 16:00] VITALS: BP 108/50
[2020-02-27 18:47] LABS: CREATININE 3.35 mg/dL (0.55-1.02); POTASSIUM 3.7 mmol/L (3.5-5.1)
[2020-02-27 20:00] VITALS: BP 119/57
[2020-02-28] VITALS (9 sets, daily range): BP systolic 108–135; BP diastolic 54–78
[2020-02-28 06:06] LABS: HEMATOCRIT 25.6 % (37.0-47.0); HEMOGLOBIN 8.4 g/dl (12.0-16.0); MEAN CORPUSCULAR HGB 31.8 pg (27.0-31.0); MEAN CORPUSCULAR HGB CONC 32.8 g/dl (33.0-37.0); PLATELET COUNT AUTOMATED 40 10*3/uL (130-400); RED BLOOD COUNT 2.64 10*6/uL (4.10-5.10); RED CELL DISTRI WIDTH 16.4 % (0-14.5); WHITE BLOOD COUNT 3.3 10*3/uL (4.8-10.8)
[2020-02-28 06:11] LABS: CREATININE 3.25 mg/dL (0.55-1.02); POTASSIUM 4.3 mmol/L (3.5-5.1)
[2020-02-28 07:59] LABS: ABG BASE EXCESS -3.5 mmol/L (-2.0-2.0); ARTERIAL BLOOD GAS PH 7.432 (7.35-7.45)
[2020-02-28 08:00] LABS: BURR CELLS FEW; PLATELET SUFFICIENCY LOW (NORMAL); POLYCHROMASIA SLIGHT; TOTAL CELLS COUNTED 100 #CELLS
[2020-02-28 08:01] LABS: OVALOCYTES MODERATE; SCHISTOCYTES FEW
[2020-02-29] VITALS: BP 113/56
[2020-02-29 06:02] LABS: CREATININE 3.06 mg/dL (0.55-1.02)
[2020-02-29 06:33] LABS: HEMOGLOBIN 9.5 g/dl (12.0-16.0); RED CELL DISTRI WIDTH 16.7 % (0-14.5)
[2020-02-29 06:35] LABS: HEMATOCRIT 29.3 % (37.0-47.0); MEAN CELL VOLUME 98.7 fl (81.0-99.0); MEAN CORPUSCULAR HGB CONC 32.4 g/dl (33.0-37.0); MEAN PLATELET VOLUME 9.9 fl (9.6-12.3); PLATELET COUNT AUTOMATED 46 10*3/uL (130-400); RED BLOOD COUNT 2.97 10*6/uL (4.10-5.10); WHITE BLOOD COUNT 5.5 10*3/uL (4.8-10.8)
[2020-02-29 07:18] LABS: TOTAL CELLS COUNTED 100 #CELLS
[2020-02-29 07:19] LABS: BURR CELLS MODERATE; OVALOCYTES FEW; PLATELET SUFFICIENCY LOW (NORMAL)
[2020-02-29 08:08] VITALS: BP 112/60
[2020-02-29 12:00] VITALS: BP 122/75
[2020-02-29 16:00] VITALS: BP 114/62
[2020-02-29 20:00] VITALS: BP 107/50
[2020-03-01] VITALS: BP 113/49
[2020-03-01 06:05] LABS: ALBUMIN 1.9 gm/dl (3.1-4.5); CREATININE 2.92 mg/dL (0.55-1.02); TOTAL PROTEIN 4.9 gm/dL (6.4-8.2)
[2020-03-01 06:06] LABS: POTASSIUM 3.9 mmol/L (3.5-5.1)
[2020-03-01 06:08] LABS: HEMOGLOBIN 8.9 g/dl (12.0-16.0); MEAN CELL VOLUME 101.4 fl (81.0-99.0); MEAN CORPUSCULAR HGB 32.2 pg (27.0-31.0); MEAN CORPUSCULAR HGB CONC 31.8 g/dl (33.0-37.0); MEAN PLATELET VOLUME 9.9 fl (9.6-12.3); PLATELET COUNT AUTOMATED 43 10*3/uL (130-400); RED BLOOD COUNT 2.76 10*6/uL (4.10-5.10); RED CELL DISTRI WIDTH 16.8 % (0-14.5); WHITE BLOOD COUNT 4.8 10*3/uL (4.8-10.8)
[2020-03-01 06:51] LABS: BASOPHILS 1 % (0-1); BURR CELLS FEW; OVALOCYTES FEW; PLATELET SUFFICIENCY LOW (NORMAL); ROULEAUX SLIGHT; TOTAL CELLS COUNTED 100 #CELLS
[2020-03-01 06:52] LABS: SCHISTOCYTES FEW
[2020-03-01 08:00] VITALS: BP 125/60
[2020-03-01 12:00] VITALS: BP 134/58
[2020-03-01 16:00] VITALS: BP 119/58
== END 2020-03-01 18:52 | disposition hospice, home (50) | DRG 441 ==
LOC: ED 14:14 → 4E 15:08
PROVIDERS: Emergency Medicine; Family Medicine; Internal Medicine; Student in an Organized Health Care Education/Training Program; ADMIT Internal Medicine
DX: K72.00 Acute and subacute hepatic failure without coma (principal); N17.0 Acute kidney failure with tubular necrosis; E43 Unspecified severe protein-calorie malnutrition; E87.0 Hyperosmolality and hypernatremia; D68.9 Coagulation defect, unspecified; N39.0 Urinary tract infection, site not specified; R18.8 Other ascites; L97.911 Non-pressure chronic ulcer of unspecified part of right lower leg limited to breakdown of skin; E72.20 Disorder of urea cycle metabolism, unspecified; Z16.11 Resistance to penicillins; I13.0 Hypertensive heart and chronic kidney disease with heart failure and stage 1 through stage 4 chronic kidney disease, or unspecified chronic kidney disease; I50.9 Heart failure, unspecified; N18.3 Chronic kidney disease, stage 3 (moderate); E87.8 Other disorders of electrolyte and fluid balance, not elsewhere classified; N94.89 Other specified conditions associated with female genital organs and menstrual cycle; D64.9 Anemia, unspecified; E11.22 Type 2 diabetes mellitus with diabetic chronic kidney disease; K74.60 Unspecified cirrhosis of liver; E80.6 Other disorders of bilirubin metabolism; I83.019 Varicose veins of right lower extremity with ulcer of unspecified site; D47.3 Essential (hemorrhagic) thrombocythemia; E83.41 Hypermagnesemia; B95.2 Enterococcus as the cause of diseases classified elsewhere; E86.0 Dehydration; Z66 Do not resuscitate; Z51.5 Encounter for palliative care; Z88.6 Allergy status to analgesic agent; Z88.2 Allergy status to sulfonamides; Z88.8 Allergy status to other drugs, medicaments and biological substances; Z79.899 Other long term (current) drug therapy; Z79.84 Long term (current) use of oral hypoglycemic drugs; Z82.49 Family history of ischemic heart disease and other diseases of the circulatory system; Z68.20 Body mass index [BMI] 20.0-20.9, adult

== ENCOUNTER 2020-03-01 19:14 | Inpatient (IN) | payer OTHER ==
[~2020-03-01] VITALS: Ht 170.2 cm; Wt 59.9 kg
[~2020-03-01 19:14] MED LIST changes: +ALDACTONE25 M1 PO; +ALDACTONE50 M1 PO; +ALUMINUM HYDROXIDE PO; +COL-RITE100 M1 PO; +CONSTULOSE10 GM/151 PO; +FOSAMAX PLUS D1 EACH PO; +FOSAMAX70 M1 PO; +GLUCOPHAGE500 M1 PO; +Ipratropium Brom3 ML INH; +LASIX20 MG PO; +LINZESS145 MC1 PO; +MAGNESIUM HYDROXIDE PO; +MIRALAX17 GM PO; +MULTIVITAMINS1 EAC6 PO; +REGLAN5 MG PO; +REMERON15 M2 PO; +RISPERDAL0.5 MG PO; +SENSIPAR30 MG PO; +SIMETHICONE PO; +THERA TABLET400 MCG PO; +TRAD5TAB1 PO; +VENTOLIN 02.5 MG/3 M NEB; +XIFAXAN550 MG PO
[2020-03-01 20:00] VITALS: BP 115/56
--- NOTE | 2020-03-01 20:20 | NUR ---
Time: 2019 A 64 year old f admitted to under services of BRITNEY PAREDES DO. Pt. arrived via bed from [facility]. Chief complaint: INPATIENT HOSPICE. NELLIE CESPEDES
[2020-03-02] VITALS: BP 111/56
--- NOTE | 2020-03-02 07:00 | NUR ---
ARRIVED ON SHIFT, PATIENT RESTING QUIETLY WITH EYES CLOSED, BED IN LOW POSITION, WHEELLOCKS ENGAGED, SR UP X 2,NO NEEDS VOICED AT THIS TIME. WHITE BOARD UPDATED.
[2020-03-02 08:00] VITALS: BP 125/56
--- NOTE | 2020-03-02 08:09 | NUR ---
Shift chart check completed.
--- NOTE | 2020-03-02 09:45 | NUR ---
PATIENT CRYING OUT, NON-VERBAL PAIN 05/31 MEDICATED WITH MORPHINE 2MG ORDERED PRN, FOR PAIN
--- NOTE | 2020-03-02 10:41 | NUR ---
GOOD RELIEF FROM MORPHINE GIVEN X 1 HOUR AGO EVIDENCED BY PATIENT RESTING QUIETLY WITH EYES CLOSED, RESPIRATIONS EVEN AND NON-LABORED, NO FACIAL GRIMACING NOTED.
[2020-03-02 12:00] VITALS: BP 113/55
[2020-03-02 16:00] VITALS: BP 130/72
[2020-03-02 20:00] VITALS: BP 126/65
[2020-03-03] VITALS: BP 118/62
--- NOTE | 2020-03-03 03:08 | NUR ---
24 HR chart check completed.
--- NOTE | 2020-03-03 07:00 | NUR ---
ARRIVED ON SHIFT, PATIENT RESTING QUIETLY WITH EYES CLOSED, RESPIRATIONS EASY, NON-LABORED, NO DISTRESS NOTED, BED IN LOW POSITION, WHEEL LOCKS ENGAGED, SR UP X 2, BED ALARM ON, CALL LIGHT WITIN REACH, NO NEEDS AT THIA TIME, WHITE BOARD UPDATED.
[2020-03-03 12:00] VITALS: BP 117/54
[2020-03-03 16:00] VITALS: BP 128/59
[2020-03-03 20:00] VITALS: BP 124/53
--- NOTE | 2020-03-03 20:51 | NUR ---
PRN IV MORPHINE GIVEN AT THIS TIME FOR 7/10 ABDOMINAL PAIN, PATIENT CRYING OUT IN PAIN AT THIS TIME. PATIENT A&OX1 AND CONFUSED WHICH HAS BEEN HER NORMAL. CALL LIGHT WITHIN REACH, PATIENT REORIENTED TO TIME AND PLACE AND CALL LIGHT.
--- NOTE | 2020-03-03 21:20 | NUR ---
PRN IV ATIVAN GIVEN AT THIS TIME FOR INCREASED AGGITATION PATIENT CRYING OUT FOR HELP, ALERT TO SELF, UNABLE TO SAY WHERE SHE IS SHE THINKS SHE IS AT HOME AND THAT SOMEONE HAS TAKEN HER DOG. PATIENT REORIENTED TO PLACE AND TIME. PATIENT ALSO GIVEN PO REGLAN FOR COMPLAINT OF STOMACH UPSET AT THIS TIME. CALL LIGHT WITHIN REACH AND BED ALARM IS ON. WILL CONTINUE TO MONITOR.
--- NOTE | 2020-03-03 21:40 | NUR ---
PATIENT RESTING COMFORTABLY AT THIS TIME IN BED DENIES ANY PAIN OR DISCOMFORT AT THIS TIME AFTER PRN IV MORPHINE AND ATIVEN GIVEN. PATIENT RATES HER PAIN AT A 3/10 AT THIS TIME. CALL LIGHT WITHIN REACH WILL CONTINUE TO MONITOR.
--- NOTE | 2020-03-03 23:30 | NUR ---
24 HOUR CHART CHECK COMPLETE
[2020-03-04] VITALS: BP 109/54
--- NOTE | 2020-03-04 07:00 | NUR ---
ARRIVED ON SHIFT, RESTING QUIETLY WITH EYES CLOSED, RESPIRATIONS EASY NON-LABORED, NO FACIAL GRIMACING, BED IN LOW POSITION WHEEL LOCKS ENGAGED, CALL LIGHT WITHIN REACH, BED ALARM ON, SR UP X 2,NO NEEDS APPARENT NEEDS AT THIS TIME.
[2020-03-04 08:00] VITALS: BP 128/55
--- NOTE | 2020-03-04 08:03 | NUR ---
Shift chart check completed.
--- NOTE | 2020-03-04 09:41 | NUR ---
Spoke to [facility] Case Manager, Aggie, regarding discharge planning. Aggie's phone number is [phone]. Explained patient lives at home alone and per the [facility] is not able to return home as there is not anyone to assist. AMANDA lives in [place], [place]. environmental services worker is checking to see if [facility] will accept the patient with hospice pending Medicaid.
--- NOTE | 2020-03-04 09:55 | NUR ---
Patient can return to [facility] with [facility] and medicaid pending.
--- NOTE | 2020-03-04 10:00 | NUR ---
RECEIVED CALL FROM VINNY RN, FROM [facility], RECOMMENDATIONS TO DISCONTINUE IV MORPHINE AND LORAZEPAM, CHANGE TO MORPHINE 20MG/ML, GIVE 5MG/0.25ML Q4H NEEDED FOR PAIN OR AIR HUNGER, LORAZEPAM 1MG TAB, Q6H PRN FOR ANXIEY, RESTLESSNESS OR AGGITATION, NOTIFIED CORNELIO Garrett CNP OF RECOMMENDATIONS.
--- NOTE | 2020-03-04 10:22 | NUR ---
Received call from AMANDA Fernando regarding [facility] paperwork. She will fax [facility] paperwork. Discussed patient is able to discharge to [facility] with Medicaid pending. Kassie states she is very confused as the hospice nurse yesterday was saying she wasn't complaining of any pain and she was asking for her make-up bag which is completely normal for her. Discussed pain and anxiety medication given last night for abdominal pain and anxiety. She would like to talk to hospice nurse VINNY. Reached out to Kelechi from [facility] to have VINNY reach out the Kassie at [phone]. She is also confused as to how the Medicaid process is being started as no one has called her and she is sure the patient is not giving them any information. [facility] Kassie the [facility] Awaiting return call.
--- NOTE | 2020-03-04 10:45 | NUR ---
[facility]. Placed on chart.
--- NOTE | 2020-03-04 13:14 | NUR ---
OSVALDO received call from [facility] ([phone]). Per Aggie patients family is requesting the patient be transferred to 1. [facility] 2. [facility]. Patients Medicaid Application should be pending, however Aggie is unaware of this. She stated she would reach out to [facility] to see the status. ENVIRONMENTAL SCIENTISTS notified RAEJSH Donaldson. -OSVALDO Flores
[2020-03-04 16:00] VITALS: BP 100/44
[2020-03-05] VITALS: BP 114/53
--- NOTE | 2020-03-05 00:27 | NUR ---
24 HOUR CHART CHECK COMPLETE
--- NOTE | 2020-03-05 06:22 | NUR ---
PATIENT HAD BEEN CALLING OUT FOR HELP TO FIND HER DOG, A BABY THAT SHE HEARD CRYING, AND HER PURSE;PATIENT BECAME AGGITATED AFTER BEING TOLD THAT SHE WAS IN THE HOSPITAL IN [place] THAT HER DOG WAS NOT HERE, WE DID NOT HAVE BABIES IN THIS FACILITY AND THAT HER PURSE WAS NOT HERE AFTER BEING SHOWN THAT IS WAS NOT ON HER LIST NOR IN THE ROOM. PATIENT REFUSED TO TAKE PRN PO ATIVAN, MEDICATION WASTED WITH RADHA BALLESTEROS WITNESS.
[2020-03-05 08:00] VITALS: BP 116/57
--- NOTE | 2020-03-05 08:48 | NUR ---
STONE AND PLATE PREPARER APPRENTICE reached out to [facility] ([phone]). Aggie stated she spoke with [facility] and was informed the NF has to start the process. STONE AND PLATE PREPARER APPRENTICE reached out to [facility] and is awaiting return call. STONE AND PLATE PREPARER APPRENTICE informed Rail Transportation Operator Kassie and Michael Donaldson.
--- NOTE | 2020-03-05 09:19 | NUR ---
[facility] She is going to speak with Debby at [facility] to see if the patient would qualify for Medicaid and discuss getting the process started if she does. Will await call back from Hui.
--- NOTE | 2020-03-05 10:43 | NUR ---
TWINE REELING MACHINE OPERATOR spoke with Patti, per Hui "Hospice needs to help apply for Medicaid and once they have that pending Medicaid number we can move forward with her admission." TWINE REELING MACHINE OPERATOR reached out to [facility]. She stated she would contact [facility] again and start the process. TWINE REELING MACHINE OPERATOR notified Fire Marshal Refinery Kassie.
[2020-03-05 12:00] VITALS: BP 124/64
--- NOTE | 2020-03-05 12:57 | NUR ---
[facility]ie stated that she had completed the Medicaid application but was unsure of where to send it to be submitted. Aggie is to email this STRAIGHTENER HAND the application. This STRAIGHTENER HAND spoke with Patti. Patti provided [email or web address] email to forward the application to. Once this STRAIGHTENER HAND receives the email from Aggie, it will be forwarded to the email address provided to have it submitted for review. STRAIGHTENER HAND notified Circuit Board Inspector Kassie.
--- NOTE | 2020-03-05 14:05 | NUR ---
OSVALDO emailed Medicaid application to [email or web address] for review.
--- NOTE | 2020-03-05 14:23 | NUR ---
HOOP COILER sent updates to Patti. Still awaiting to hear about pending Medicaid application.
[2020-03-05 16:00] VITALS: BP 112/56
--- NOTE | 2020-03-05 18:50 | NUR ---
PT RECIEVED 1 DOSE OF MORPHINE AND ONE DOSE OF ATIVAN ORDERRED IN [facility]. SHE HAS RESTED COMFORTABLY THROUGHOUT DAY. DISORIENTED TO PLACE AND TIME. COONTINUES TO WANT TO GET HER BAG AND GO HOME TO CARE FOR HER CATS.
--- NOTE | 2020-03-05 21:27 | NUR ---
PATIENT AWAKE WHEN I ENTERED ROOM. FACIAL GRIMACING NOTED. MORPHINE GIVEN FOR PAIN. SHE IS NOT ORIENTED AT THIS TIME, TALKING ABOUT FRIENDS SON AND DENTIST'S AND NEEDING TO PUT MAKEUP ON. HELPED PATIENT GET COMFORTABLE IN BED. WILL CONTINUE TO MONITOR.
--- NOTE | 2020-03-05 23:37 | NUR ---
PATIENT RESTING IN BED QUIETLY. NO SIGNS OF DISTRESS OR DISCOMFORT NOTED. MORPHINE SEEMS TO HAVE BEEN EFFECTIVE. WILL CONTINUE TO MONITOR.
[2020-03-06] VITALS: BP 118/61
--- NOTE | 2020-03-06 03:11 | NUR ---
24 HR chart check completed.
--- NOTE | 2020-03-06 07:07 | NUR ---
TRACK ANNOUNCER received email from Arminda Perdue stating an authorized front office representative form is needed. TRACK ANNOUNCER contacted [facility] about this document. Will await a response.
[2020-03-06 08:00] VITALS: BP 127/62
--- NOTE | 2020-03-06 08:13 | NUR ---
OSVLADO contacted [facility] to insure she received this mornings email. She state she would contact the POKit Fernando and attempt to get the Authorized Microchip Specialist Form complete. OSVALDO will continue follow.
--- NOTE | 2020-03-06 08:23 | NUR ---
Pt tearful at this time. Crying over necklace states she lost. Medicated with ativan per prn order.
--- NOTE | 2020-03-06 09:15 | NUR ---
No signs of anxiety.
--- NOTE | 2020-03-06 09:55 | NUR ---
CONE OPERATOR spoke with [facility]. She has attempted to contact Kassie and is waiting for a return call from her about the needed documents for the Medicaid Application.
--- NOTE | 2020-03-06 11:07 | NUR ---
EDITOR MAGAZINE spoke with A[facility] AWILDA. Per Aggie, patients NORMANOA is completing the Medicaid application and will be emailing it, along with the DPOA papers to be forwarded to Arminda Perdue at [facility]. EDITOR MAGAZINE will continue to follow.
[2020-03-06] MEDS ORDERED: LORAZEPAM1 MG PO (11:32)
--- NOTE | 2020-03-06 11:41 | NUR ---
RUBBER GOODS INSPECTOR TESTER received email containing the new Medicaid Application and DPOA papers from Arturo Gonzalez. RUBBER GOODS INSPECTOR TESTER forwarded the email containing this information to Arminda Perdue to have the Medicaid application reviewed/submitted. RUBBER GOODS INSPECTOR TESTER notified Patti. Will continue to follow.
[2020-03-06] MEDS ORDERED: MORPHINE S100 MG/5 M PO (11:43)
[2020-03-06 12:00] VITALS: BP 119/64
--- NOTE | 2020-03-06 15:15 | NUR ---
Yelling out and tearful. Medicated with ativan at this time.
--- NOTE | 2020-03-06 15:53 | NUR ---
Pt relaxed. No signs of anxiety or distress noted.
[2020-03-06 16:00] VITALS: BP 112/53
[2020-03-06 20:00] VITALS: BP 111/54
--- NOTE | 2020-03-06 20:20 | NUR ---
PATIENT YELLING OUT FOR A LAURA. PATIENT SEEMS ANXIOUS. ATIVAN GIVEN PER ORDER. WILL ASSESS EFFECTIVENESS. PATIENT STATES SHE IS NOT IN ANY PAIN. WILL MONITOR FOR SIGNS AND SYMPTOMS OF DISTRESS/DISCOMFORT.
--- NOTE | 2020-03-06 20:58 | NUR ---
FAMILY CALLED. UPDATED THEM ON PATIENT. NO FURTHER QUESTIONS.
--- NOTE | 2020-03-06 21:39 | NUR ---
MEDICATED WITH PRN MORPHINE FOR PAIN. PATIENT YELLING OUT "HELP ME". BED ALARM ON, BED INL OW POSITION, CALL LIGHT INR EACH
--- NOTE | 2020-03-06 23:07 | NUR ---
MORPHINE EFFECTIVE. PATIENT RESTING QUIESTLY IN BED. RESPIRATIONS EASY, REGULAR, NO DISTRESS OR SIGNS OF DISCOMFORT NOTED. WILL CONTINUE TO MONITOR.
[2020-03-07] VITALS: BP 126/73
--- NOTE | 2020-03-07 03:16 | NUR ---
CHECKED ON PATIENT AND SHE WAS AWAKE AND GRIMACING. WHEN ASKED IF SHE WAS IN PAIN SHE SHOOK HER HEAD AND THEN STARED UP AT THE CEILING. MORPHINE GIVEN PER ORDER. WILL ASSESS EFFECTIVENESS.
[2020-03-07 08:00] VITALS: BP 127/65
--- NOTE | 2020-03-07 08:04 | NUR ---
Awaiting update on Medicaid Grace submitted yesterday.
--- NOTE | 2020-03-07 08:34 | NUR ---
OSVALDO received the following email from Arminda Perdue "... Every application has 30 days from date of application. No verifications were turned in at the time of applications. The A/R will be receiving a checklist in the mail. All applications need ID, SS, BC, Medicare card and all insurance cards. All income, All resources and the last 6 months of all bank statements. Everything is required before any eligibility can be determined. Some turn all this in with the application to help speed up eligibility." OSVALDO spoke with Patti due to this update she stated that [facility] would require $5600.00 upfront for the patient to go there while pending this application. It is a payment of $200.00 a day. WOOD CUT ENGRAVER reached out to PEDRO PABLO-Arturo Gonzalez and left message for a return call. WOOD CUT ENGRAVER reached out to [facility] and left message for a return call. WOOD CUT ENGRAVER reached out to [facility] and explained to him the update. OSVALDO explained to him that patient/family would either have to pay the $5600 to [facility] or to have the patient go home with family under their care. Kelechi stated that he would speak with Aggie and attempt to get in touch with the PEDRO PABLO Morris about this. As WOOD CUT ENGRAVER is typing this message. WOOD CUT ENGRAVER received call from PEDRO PABLO Morris. WOOD CUT ENGRAVER explained to her the situtation. WOOD CUT ENGRAVER explained the LTC placement vs home. Arturo stated the patient cannot return home, no help. She stated she would think things over and speak with hospice and [facility]. She also wanted to know if any other facility would accept the patient ( she said no to [facility]). OSVALDO contacted [facility]. OSVALDO explained the conversation with Arturo. She stated they would work to find a solution and would be in touch. OSVALDO explained this to assistant case manager Kassie.
--- NOTE | 2020-03-07 11:46 | NUR ---
Medicated with ativan per prn order for s/s of anxiety. Pt is crying and yelling out.
[2020-03-07 12:00] VITALS: BP 114/50
--- NOTE | 2020-03-07 13:53 | NUR ---
OSVALDO received call from Patti asking if the patient would be able to participate in PT. GO GO DANCER reached out to RN Hospitalist Coordinator Rena, per Rena patient does not met Inpatient requirments. OSVALDO explained this to Patti who stated she would notifiy [facility].
--- NOTE | 2020-03-07 15:36 | NUR ---
Received call from PEDRO PABLO Fernando, regarding discharge planning. workers' compensation commissioner following for return to [facility] pending Medicaid. Awaiting physician decision.
[2020-03-07 16:00] VITALS: BP 107/49
[2020-03-07 20:00] VITALS: BP 113/60
--- NOTE | 2020-03-07 20:39 | NUR ---
PATIENT MEDICATED WITH MORPHINE SL 5MG FOR COMPLAINTS OF BEING IN PAIN. WILL CONTINUE TO MONITOR. CALL LIGHT IN REACH.
--- NOTE | 2020-03-07 23:23 | NUR ---
PATIENT MEDICATED WITH ATIVAN 1MG FOR YELLING OUT. WILL CONTINUE TO MONITOR. CALL LIGHT IN REACH.
[2020-03-08] VITALS: BP 141/62
--- NOTE | 2020-03-08 07:35 | NUR ---
ANIME ARTIST spoke with Gonzales Bourgeois. Kelechi stated "Aggie just told me that she is still going to remain GIP with us until we can get a Medicaid number issued and a facility to take her as Medicaid pending." ANIME ARTIST updated Licensed Investment Sales Assistant Kassie.
[2020-03-08 08:00] VITALS: BP 128/58
--- NOTE | 2020-03-08 09:00 | NUR ---
PT LYING IN BED, HOB ELEVATED. PATIENT ATTENDANT AT BEDSIDE ASSISTING PATIENT WITH EATING BREAKFAST. PT STATES THAT HER "BACK HURTS". PT IS ALERT AND APPEARS TO HAVE INTERMITTENT CONFUSION. RESPIRATIONS ARE UNLABORED. SAFETY MEASURES IN PLACE. CALL LIGHT IN REACH.
--- NOTE | 2020-03-08 09:33 | NUR ---
PT GIVEN MORPHINE 5 MG SL AT THIS TIME FOR S/S OF PAIN AND AGITATION. WILL MONITOR FOR EFFECTIVENESS. ASSESSMENT IS COMPLETED. PT TURNED AND REPOSITIONED FOR COMFORT. HOB ELEVATED, RESPIRATIONS UNLABORED. CALL LIGHT IN REACH.
--- NOTE | 2020-03-08 10:33 | NUR ---
MORPHINE APPEARS EFFECTIVE. PT RESTING IN BED WITH EYES CLOSED. RESPIRATIONS EASY AND UNLABORED ON ROOM AIR. SAFETY MEASURES IN PLACE. CALL LIGHT IN REACH.
--- NOTE | 2020-03-08 14:56 | NUR ---
PT GIVEN MORPHINE AND ATIVAN AT THIS TIME FOR S/S OF PAIN AND AGITATION. WILL MONITOR FOR EFFECTIVENESS. PT SITTING UP IN BED, AWAKE AND ALERT WITH PERIODS OF CONFUSION. CALL LIGHT IN REACH.
--- NOTE | 2020-03-08 15:50 | NUR ---
PRN MEDS EFFECTIVE.
[2020-03-08 16:00] VITALS: BP 144/67
--- NOTE | 2020-03-08 18:45 | NUR ---
PT RESTING IN BED. NO S/S OF DISTRESS. RESPIRATIONS UNLABORED. SAFETY MEASURES IN PLACE. CALL LIGHT IN REACH.
[2020-03-08 20:00] VITALS: BP 102/50
--- NOTE | 2020-03-08 21:22 | NUR ---
YELLING OUT C/O HURTING MORPHINE GIVEN PER ORDER FOR PAIN. PATIENT REFUSED TO TAKE PO ATIVAN AT THIS TIME FOR RESTLESSNESS.
--- NOTE | 2020-03-08 22:00 | NUR ---
PATIENT SLEEPING. EYES CLOSED.
--- NOTE | 2020-03-08 22:30 | NUR ---
PATIENT WAS RESTING BUT STARTED YELLING OUT AGAIN AND FIDGITING. PATIENT DID TAKE ATIVAN AT THIS TIME.
[2020-03-09] VITALS: BP 122/55
--- NOTE | 2020-03-09 01:30 | NUR ---
SLEEPING ATIVAN EFFECTIVE.
--- NOTE | 2020-03-09 04:00 | NUR ---
SLEEPING NO ACUTE DISTRESS NOTED.
--- NOTE | 2020-03-09 06:08 | NUR ---
REPOSITIONED FOR COMFORT.
--- NOTE | 2020-03-09 06:34 | NUR ---
24 HR chart check completed.
[2020-03-09 08:00] VITALS: BP 132/72
--- NOTE | 2020-03-09 10:40 | NUR ---
PT GIVEN MORPHINE AT THIS TIME FOR S/S OF DISTRESS/DISCOMFORT. PT IS YELLING OUT. PT STATES THAT SHE IS HAVING PAIN AND THAT PAIN IS LOCATED IN HER BACK. WILL MONITOR FOR EFFECTIVENESS OF MORPHINE. PT REPOSITIONED FOR COMFORT. BRUNSON IS PATENT AND DRAINING DARK POP URINE. RESPIRATIONS ARE UNLABORED ON ROOM AIR. CALL LIGHT IN REACH.
--- NOTE | 2020-03-09 11:40 | NUR ---
PT APPEARS COMFORTABLE AT THIS TIME IN BED. NO S/S OF DISTRESS. PT SLEEPING. SAFETY MEASURES IN PLACE. CALL LIGHT IN REACH.
--- NOTE | 2020-03-09 13:00 | NUR ---
HOSPICE NURSE IN TO SEE PT AT THIS TIME. HOSPICE NURSE IS UPDATED THAT ATIVAN ORDER HAS BEEN CHANGED FROM PO TO IV BY PHYSICIANS. HOSPICE NURSE ALSO UPDATED ON STATUS OF PT AT THIS TIME. NURSE REMAINS AT BEDSIDE, CALL LIGHT IN REACH.
[2020-03-09 16:00] VITALS: BP 145/71
--- NOTE | 2020-03-09 18:00 | NUR ---
PATIENT ATTENDANT STATES THAT PT ATE ABOUT 25% OF DINNER. PT IS NOW RESTING IN BED. NO S/S OF DISTRESS. CALL LIGHT IN REACH.
--- NOTE | 2020-03-09 18:42 | NUR ---
PT GIVEN IV ATIVAN 1 MG AT THIS TIME DUE TO AGITATION/ATTEMPTING TO CLIMB OUT OF BED WITHOUT HELP/YELLING OUT. PM SHIFT NURSE TO MONITOR FOR EFFECTIVENESS. SAFETY MEAUSRES IN PLACE. CALL LIGHT IN REACH.
--- NOTE | 2020-03-09 19:30 | NUR ---
SLEEPING RESP EASY AND REG.
--- NOTE | 2020-03-09 20:00 | NUR ---
PATIENT REMAINS SLEEPING. RESP. EASY AND REG.
--- NOTE | 2020-03-09 21:00 | NUR ---
SLEEPING RESP EASY AND REG.
--- NOTE | 2020-03-09 21:46 | NUR ---
SLEEPING STILL RESP. EASY AND REG.
--- NOTE | 2020-03-09 23:17 | NUR ---
PATIENT ALERT GRIMACY. ACTING LIKE SHE IS IN PAIN AND MORPHINE GIVE PER ORDER FOR PAIN. SEE MAR.
[2020-03-10] VITALS: BP 126/66
--- NOTE | 2020-03-10 | NUR ---
MORPHINE EFFECTIVE FOR PAIN PATIENT RESTING QUIETLY.
--- NOTE | 2020-03-10 02:29 | NUR ---
PATIENT GOT HERSELF TURNED SIDE WAYS IN BED. PATIENT READJUSTED IN BED FOR COMFORT. APPEARS COMFORTABLE AT THIS TIME.
--- NOTE | 2020-03-10 02:58 | NUR ---
24 HR chart check completed.
[2020-03-10 08:00] VITALS: BP 113/50
[2020-03-10 16:00] VITALS: BP 111/59
[2020-03-11] VITALS: BP 132/68
--- NOTE | 2020-03-11 01:09 | NUR ---
PATIENT LOOKS IN DISTRESS, GRIMACING LIKE IN PAIN. ALSO AIR HUNGRY. MORPHINE GIVEN PER ORDER. WILL ASSESS EFFECTIVENESS.
--- NOTE | 2020-03-11 02:15 | NUR ---
MORPHINE SEEMS TO HAVE BEEN EFFECTIVE. PATIENT RESTING IN BED WITH NO SIGNS OR SYMPTOMS OF DISCOMFORT. WILL CONTINUE TO MONITOR.
--- NOTE | 2020-03-11 07:00 | NUR ---
ARRIVED ON SHIFT, INTRODUCED TO PATIENT, BED IN LOW POSITION, SIDERAILS UP X 4, WHEELLOCKS ENGAGED, CALL LIGHT WITHIN REACH, NO NEEDS VOICED, WHITE BOARD UPDATED.
[2020-03-11 08:00] VITALS: BP 123/51; BP 130/56
--- NOTE | 2020-03-11 08:04 | NUR ---
Shift chart check completed.
--- NOTE | 2020-03-11 08:19 | NUR ---
FURNACE COMBINATION ANALYST spoke with [facility]. Patients Medicaid Application is still being reviewed. Awaiting Pending Medicaid number.
--- NOTE | 2020-03-11 09:15 | NUR ---
MIDDLEWARE SOLUTIONS ARCHITECT faxed updates to Patti, once Pending Medicaid Grace number is received [facility] can accept her.
[2020-03-11 12:00] VITALS: BP 125/61; BP 132/55
--- NOTE | 2020-03-11 14:07 | NUR ---
PATIENT YELLING AND SCREAMING WELL HAS GRIMACING, MEDICATED WITH MORPHINE AND LORAZEPAM ORDERED PRN. PLACED CALL TO HOSPITALIST LINE, SPOKE TO DR. SANCHEZ, ADVISED THAT PATIENTS MORPHINE TIMED OUT, HE VERSED HE WILL REINSTATE ORDER.
--- NOTE | 2020-03-11 15:05 | NUR ---
PATIENT HAVING GOOD RELIEF FROM MORPHINE AND LORAZEPAM GIVEN X 1 HOUR AGO EVIDENCED BY. PATIENT RESTING QUIETLY WITH EYES CLOSED, RESPIRATIONS EVEN AND NON LABORED, FACIAL EXPRESSION CALM.
[2020-03-11 16:00] VITALS: BP 113/58
[2020-03-11 20:00] VITALS: BP 109/56
--- NOTE | 2020-03-11 21:49 | NUR ---
PATIENT SLEEPING, NO SIGNS OF DISTRESS. RESPIRATIONS EASY, NON LABORED. BED IN LOWEST POSITION, CALL LIGHT WITHIN REACH. WILL CONTINUE TO MONTIOR.
--- NOTE | 2020-03-11 22:46 | NUR ---
PATIENT AWAKE, MOANING AND YELLING. SIDEWAYS IN BED. PATIENT REPOSITIONED. MEDICATED WITH PRN ATIVAN AND MORPHINE AT THIS TIME. WILL CHECK EFFECTIVENESS.
[2020-03-12] VITALS: BP 126/72; BP 138/60
--- NOTE | 2020-03-12 00:15 | NUR ---
PATIENT RESTING COMFORTABLY IN BED. EARLIER MEDICATIONS GIVEN EFFECTIVE
--- NOTE | 2020-03-12 08:05 | NUR ---
IN TO ROOM TO ASSESS PATIENT. NOTICED PATIENT WAS NOT BREATHING. NO BREATH SOUNDS HEARD. NO PULSE FELT. VERIFIED WITH NILESH RONDON.
--- NOTE | 2020-03-12 08:10 | NUR ---
DR. MOSQUERA AND NURSING KENNEL SUPERVISOR NOTIFIED OF .
--- NOTE | 2020-03-12 08:13 | NUR ---
ATTEMPTED TO NOTIFY MULTIPLE FAMILY MEMBERS. NO ANSWER AT THIS TIME. WILL CONTINUE TO CALL.
--- NOTE | 2020-03-12 08:30 | NUR ---
FAMILY CONTACTED AND NOTIFIED OF . ONE CALL NOTIFIED AND BODY RELEASED. [facility] NOTIFIED.
--- NOTE | 2020-03-12 10:10 | NUR ---
PATIENT LEFT FLOOR TO [facility]
== END 2020-03-12 08:05 | disposition expired | DRG 441 ==
LOC: 4E 19:14
PROVIDERS: ADMIT Internal Medicine
DX: K72.90 Hepatic failure, unspecified without coma (principal); N17.0 Acute kidney failure with tubular necrosis; E43 Unspecified severe protein-calorie malnutrition; N39.0 Urinary tract infection, site not specified; J90 Pleural effusion, not elsewhere classified; Z51.5 Encounter for palliative care; D64.9 Anemia, unspecified; N18.3 Chronic kidney disease, stage 3 (moderate); I12.9 Hypertensive chronic kidney disease with stage 1 through stage 4 chronic kidney disease, or unspecified chronic kidney disease; K74.60 Unspecified cirrhosis of liver; E11.22 Type 2 diabetes mellitus with diabetic chronic kidney disease; Z82.49 Family history of ischemic heart disease and other diseases of the circulatory system; Z88.1 Allergy status to other antibiotic agents; Z88.2 Allergy status to sulfonamides; Z68.20 Body mass index [BMI] 20.0-20.9, adult